=== PATIENT | female | born 1970 | race Caucasian/White ===

== ENCOUNTER 2020-10-29 12:33 | Emergency (ER) | payer OTHER, BC, SELFPAY ==
[2020-10-29] VITALS (14 sets, daily range): BP systolic 98–135; BP diastolic 57–94; PULSE 51–75; RESP 11–25; TEMP 36.9; O2SAT 74–100
--- NOTE | ~2020-10-29 | CT_ITS ---
EXAMINATION: CT BRAIN W/O DATE: 10/29/2020 14:25 INDICATION: Headache TECHNIQUE: Computed tomography (CT) of the head was performed without intravenous contrast. The dose- length product was 605.33 mGy-cm. The mA was adjusted according to patient size. Iterative reconstruc tion technique was employed. COMPARISON: No prior studies for comparison. FINDINGS: Normal brain parenchymal volume for age. Normal alexander-white differentiation. No acute intrac ranial hemorrhage, infarction, mass or mass effect. No ventriculomegaly or midline shift. Midline sagittal images demonstrate a normal corpus callosum, c raniovertebral junction and sella turcica. Basilar cisterns are patent. There is mucosal thickening of the left maxillary sinus. Mastoids are pneumatized. 2: Mild sinus disease. IMPRESSION: 1. No acute intracranial abnormality. Reviewed, dictated and finalized at location A. 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
--- NOTE | 2020-10-29 12:52 | ECG_ITS ---
Measurements Intervals [place] Rate: 62 P: 36 TX: 173 QRS: 44 QRSD: 74 T: 30 QT: 382 QTc: 391 Interpretive Statements SINUS RHYTHM LOW QRS VOLTAGE IN PRECORDIAL LEADS BASELINE ARTIFACT- V4 BORDERLINE ECG Electronically Signed On 10-29-2020 16:28:52 WEBSITE/BLOG EDITOR by Chevy Fleming D.O.
--- NOTE | 2020-10-29 13:10 | PC.NURSE ---
patient brought back to ED room 5 with c/o headache. see initial assessment. patient states she has been seeing her PCP for migraines. states she had a syncopal episode yesterday at home. unclear on details. unclear on injuries. patient also states she was seen in December of last year for same symptoms. she thinks her diagnosis at that time was mini strokes . patient is scheduled to see neurology next month. also states she has a hx of pancreatitis with continued abdomen pain. c/o hematuria. c/o BLE edema with weeping from her legs at times. assessments documented. SL inserted. labs have been sent. EKG done. on imaging engineer.
[2020-10-29 13:14] LABS: Eosinophils Percent Auto 0.8 % (0-4.4); Hemoglobin 14.4 g/dL (12.0-15.0); Immature Granulocyte Absolute 0.01 K/mm3 (0.00-0.031); Immature Granulocyte Percent A 0.3 % (0-0.5); Lymphocytes Absolute Auto 1.35 K/mm3 (0.9-3.2); Lymphocytes Percent Auto 34.2 % (18.3-44.2); Mean Corpuscular HGB Conc 32.7 g/dl (32-36); Mean Corpuscular Hemoglobin 29.7 pg (26-34); Mean Corpuscular Volume 90.7 fl (80-100); Mean Platelet Volume 9.1 fl (7.4-10.4); Monocytes Absolute Auto 0.2 K/mm3 (0.1-0.6); Monocytes Percent Auto 6.1 % (2.6-8.5); Neutrophils Absolute Auto 2.3 K/mm3 (1.3-6.7); Neutrophils Percent Auto 57.6 % (45.5-73.1); Platelet Count Result 306 k/mm3 (150-375); Red Blood Count 4.85 M/mm3 (4.2-5.4); Red Cell Distribution Width 12.1 % (11.5-14.5)
[2020-10-29 13:25] LABS: Anion Gap 6 mmol/L (8-16); Blood Urea Nitrogen 12 mg/dL (7-17); Calcium 9.1 mg/dL (8.4-10.2); Carbon Dioxide 30 mmol/L (22-30); Chloride 105 mmol/L (98-107); Estimated Glomerular Filt Rate > 60; Glucose 84 mg/dL (65-105); Potassium 3.7 mmol/L (3.4-5.0); Sodium 141 mmol/L (137-145)
[2020-10-29] MEDS: METOCLOPRAMIDE HCL INJ 10 MG/2 ML VIAL IV PUSH (13:41)
[2020-10-29] MEDS: FAMOTIDINE 20 MG/2 ML VIAL IV PUSH (13:41)
[2020-10-29] MEDS: KETOROLAC 30 MG/ML VIAL (*BKC) IV PUSH (13:42)
[2020-10-29] MEDS: LACTATED RINGERS 1,000 ML 999 ML IV CONT (13:42)
[2020-10-29] MEDS: LORazepam INJ (*CRX) 2 MG/ML VIAL 1 MG IV PUSH (13:42)
[2020-10-29 13:44] LABS: Alanine Aminotransferase 26 U/L (4-35); Albumin Level 4.4 g/dL (3.5-5.1); Alkaline Phosphatase 58 U/L (38-126); Aspartate Amino Transferase 26 U/L (14-36); Bilirubin,Total 0.4 mg/dL (0.2-1.3); Lipase 80 U/L (23-300)
--- NOTE | 2020-10-29 13:59 | ED.CHESTPAIN ---
HPI - Chest Pain General Chief Complaint: Headache Stated Complaint: headache Time Seen by Provider: 10/29/20 12:51 Source: patient Mode of arrival: ambulatory Limitations: no limitations History of Present Illness HPI narrative: Patient is a 50-year-old female who presents with chief complaint of syncope blood in the urine GI upset and headache. Patient notes that she has a history of traumatic brain injury and has been under the management of her primary care and is currently waiting to get into a neurologist for intractable headaches that she has been experiencing over the last several months. Patient notes yesterday the pain had intensified despite her home medications and she sustained a syncopal episode attributed to pain. Patient also notes she had blood in her urine a day ago which has resolved. Patient notes she has chronic GI upset from chronic pancreatitis. Patient notes she believes she struck her head yesterday with syncope but denies any other injuries or complaints. Patient presents with family per private vehicle in no distress patient does not appear uncomfortable on arrival Related Data Home Medications Medication Instructions Recorded Confirmed alprazolam 0.25 mg tablet 0.25 mg PO DAILY 07/24/20 famotidine 40 mg tablet 40 mg PO DAILY 07/24/20 lubiprostone 8 mcg capsule 8 mcg PO DAILY 07/24/20 sertraline 25 mg tablet 25 mg PO DAILY 07/24/20 sumatriptan succinate mg PO 10/29/20 topiramate 10/29/20 10/29/20 ubrogepant [Ubrelvy] mg 10/29/20 Allergies Allergy/AdvReac Type Severity Reaction Status Date / Time Sulfa (Sulfonamide Allergy Unknown unknown Verified 10/29/20 13:12 Antibiotics) Review of Systems Review of Systems: All systems reviewed & are unremarkable except as noted in HPI and below PMFSH Past Medical History Medical History (Updated 10/29/20 @ 15:09 by Vivek Harper PA-C) Anxiety Depression Vaginal delivery x 2 Surgical History Surgical History History of bilateral tubal ligation History of cholecystectomy History of endometrial ablation History of partial pancreatectomy Family History Family History Mother Hypertension Father Family history of elevated blood lipids Family history of coronary artery disease Grandparent Family history of malignant neoplasm of male breast, Onset Age: 58 Family history of coronary artery disease, Onset Age: 55 Social History Social History Smoking status: Never smoker Second hand tobacco smoke exposure: No Alcohol intake: never Gender identity (if verbalized by the patient): Female Exam Narrative: Exam Narrative: GENERAL: Well-appearing, well-nourished, and in no acute distress. HEAD: Normocephalic, atraumatic. EYES: PERRLA and EOMI. ENT: Nares clear, no rhinorrhea or epistaxis. Mucous membranes moist. Oropharynx without tonsillar hypertrophy exudate or other lesions. NECK: Supple. No adenopathy or masses. CHEST: Clear to auscultation. No respiratory distress. No wheezes rales or rhonchi HEART: Regular rate and rhythm. No murmur heard. Normal peripheral pulses. ABDOMEN: Soft, nontender, nondistended EXTREMITIES: Normal range of motion. No edema. SKIN: Warm, dry, no rash. NEURO: No focal deficits. Alert and oriented x3. Cranial nerves II through XII grossly intact. Normal speech PSYCH: Normal mood and affect. Course Course Emergency Course: Patient evaluated in the emergency department felt appropriate for outpatient reevaluation by specialist patient is afebrile nontoxic-appearing no distress no high risk changes in the blood work or imaging hemodynamically stable vital signs and ABCs intact Vital Signs Vital signs: Vital Signs Temperature 98.4 F 10/29/20 12:44 Pulse Rate 65 10/29/20 12:44 Respiratory Rate 16
--- NOTE | 2020-10-29 14:03 | PC.NURSE ---
patient to restroom via wheelchair. urine specimen collected. orthostatic vitals have been done and documented. patient on ekg monitor tech. will give ativan now that patient back in bed.
[2020-10-29 14:07] LABS: Add Urine Microscopic? NO; Appearance Urine Clear (Clear); Bilirubin Urine Negative (Negative); Blood Urine Negative (Negative); Color Urine Colorless (Yellow); Glucose Urine UA Negative (Negative); Ketones Urine Negative (Negative); Leukocyte Esterase Ur Negative LEU/UL (Negative); Nitrate Urine Negative (Negative); Protein Urine Negative (Negative); Specific Grav Ur 1.008 (1.001-1.035); Urobilinogen Urine Negative mg/dL (<2.0)
--- NOTE | 2020-10-29 14:19 | PC.NURSE ---
Patient taken to CT scan at this time.
== END 2020-10-29 15:33 | disposition home or self-care (01) ==
PROVIDERS: Emergency Medicine Emergency Medical Services; Emergency Provider Emergency Medicine; PCP Internal Medicine
DX: R51.9 Headache, unspecified (principal); F32.9 Major depressive disorder, single episode, unspecified; F41.9 Anxiety disorder, unspecified; R94.31 Abnormal electrocardiogram [ECG] [EKG]
CPT/HCPCS: 36415; 70450; 80048; 80076; 81003; 81025; 83690; 85025; 93005; 96361; 96374; 96375; 99284; J1885; J2060; J2765; J7120

== ENCOUNTER 2022-05-11 08:35 | Emergency (ER) | payer OTHER, BC, SELFPAY ==
--- NOTE | ~2022-05-11 | XR_ITS ---
[XR_[id number]_CR ] INDICATION: Left rib pain after fall TECHNIQUE: Frontal projection of the upper left ribs, frontal projection of the lower left ribs, obli que projection of all the left ribs, frontal inspiratory chest x-ray for interpretation. FINDINGS: There are acute nondisplaced left fourth and fifth rib fracture. No pneumothorax. Heart siz e normal. There is scoliosis. There are cholecystectomy clips. There are no soft tissue abnormality s een. The lungs are clear. IMPRESSION: 1: Acute nondisplaced left fourth and fifth rib fractures. Reviewed, dictated and finalized at location A.
[2022-05-11 08:53] VITALS: BP 125/78; PULSE 91; RESP 18; TEMP 37.3; O2SAT 100
--- NOTE | 2022-05-11 09:37 | ED.GENADULT ---
HPI - General Adult General Chief complaint: Fall Stated complaint: left rib injury Source: patient Mode of arrival: ambulatory Limitations: no limitations History of Present Illness HPI narrative: Patient presents for evaluation of left-sided rib pain. She indicates she was stepping off a deck at home just prior to arrival when she lost her footing and hit her left chest wall against the deck. She did not hit her head. No LOC. She sprained her right ankle about a week ago while in [place]. She was evaluated in an urgent care there and had an x ray that was negative for fracture. She believes her ankle pain contributed to her fall today. She states her current pain level is 10/10. No SOB or cough. She has not taken any medication for her symptoms. She does not smoke. No additional complaints or concerns. Related Data Home Medications Medication Instructions Recorded Confirmed alprazolam 0.25 mg tablet 0.25 mg PO DAILY 07/24/20 05/11/22 sumatriptan succinate 100 mg tablet 100 mg PO DAILY PRN Migraine 10/29/20 05/11/22 Headache erenumab-aooe 70 mg/mL 70 mg subcut MONTHLY 05/11/22 05/11/22 subcutaneous auto-injector (Aimovig Autoinjector) nortriptyline 25 mg capsule 25 mg PO BID 05/11/22 05/11/22 sertraline 100 mg tablet 100 mg PO DAILY 05/11/22 05/11/22 topiramate 50 mg tablet 50 mg PO BID 05/11/22 05/11/22 Allergies Allergy/AdvReac Type Severity Reaction Status Date / Time Sulfa (Sulfonamide Allergy Unknown unknown Verified 05/11/22 09:27 Antibiotics) Review of Systems Review of Systems: CONSTITUTIONAL: Denies fever, chills, or sweats. EYES: Denies visual changes, redness, or discharge. ENT: Denies rhinorrhea, congestion, sore throat, or otalgia. CARDIOVASCULAR: Reports left sided rib pain. Denies palpitations, or edema. RESPIRATORY: Denies cough or dyspnea. GASTROINTESTINAL: Denies abdominal pain, nausea, vomiting, or diarrhea. GENITOURINARY: Denies dysuria or hematuria. SKIN: Denies rash or itching. MUSCULOSKELETAL: Reports right ankle pain. Denies back pain or myalgia. NEUROLOGIC: Denies headache, numbness, dizziness, or weakness. PSYCHIATRIC: Denies anxiety or depression. PMFSH Past Medical History Medical History Anxiety Depression Rib fractures Vaginal delivery x 2 Surgical History Surgical History History of bilateral tubal ligation History of cholecystectomy History of endometrial ablation History of partial pancreatectomy Family History Family History Mother Hypertension Father Family history of elevated blood lipids Family history of coronary artery disease Grandparent Family history of malignant neoplasm of male breast, Onset Age: 58 Family history of coronary artery disease, Onset Age: 55 Social History Social History Smoking status: Never smoker Second hand tobacco smoke exposure: No Alcohol intake: never Substance use: never Living arrangements: with family Gender identity (if verbalized by the patient): Female Sexual Orientation (if Verbalized by the Patient): Straight or Heterosexual Spiritual care concerns: No Exam Narrative: GENERAL: Well-appearing, well-nourished, and in no acute distress however she does echibit facial grimacing throughout my interview and exam. HEAD: Normocephalic, atraumatic. EYES: PERRLA and EOMI. ENT: Nares clear, no rhinorrhea or epistaxis. Mucous membranes moist. Oropharynx without tonsillar hypertrophy exudate or other lesions. Bilateral TMs pearly alexander nonbulging NECK: Supple. No adenopathy or masses. No carotid bruits or JVD CHEST: Clear to auscultation. Left lateral chest wall is tender to palpation. No crepitus. No respiratory distress. No wheezes rales o
[2022-05-11] MEDS: KETOROLAC (*BKC) 60 MG/2 ML VIAL IM (09:43)
== END 2022-05-11 09:58 | disposition home or self-care (01) ==
PROVIDERS: Emergency Provider Nurse Practitioner
DX: S22.42XA Multiple fractures of ribs, left side, initial encounter for closed fracture (principal); W17.89XA Other fall from one level to another, initial encounter; F41.9 Anxiety disorder, unspecified; F32.A Depression, unspecified
CPT/HCPCS: 71101; 96372; 99213; G0463; J1885

== ENCOUNTER 2022-10-24 16:24 | Outpatient (CLI) | payer OTHER, BC, SELFPAY ==
--- NOTE | ~2022-10-24 | MM_ITS ---
EXAMINATION: MM screening jerald BI w yung HISTORY: Screening mammogram TECHNIQUE: Craniocaudal and mediolateral oblique 3-D tomosynthesis images were obtained and synthetic 2-D images were generated. CAD analysis was submitted and interpreted. COMPARISON: 03/2019 bilateral screening mammogram BREAST PARENCHYMAL COMPOSITION: There are scattered areas of fibroglandular density. FINDINGS: There is no evidence of suspicious mass, calcification, or architectural distortion to sugg est malignancy in either breast. There has been no suspicious interval change. IMPRESSION: 1. No mammographic evidence of malignancy. 2. Recommend routine screening mammography in one year. BI-RADS Category 1: Negative Reviewed, dictated and finalized at location B. 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
== END 2022-10-24 16:25 | disposition home or self-care (01) ==
PROVIDERS: Visit Provider Obstetrics & Gynecology
DX: Z12.31 Encounter for screening mammogram for malignant neoplasm of breast (principal)
CPT/HCPCS: 77063; 77067

== ENCOUNTER → 2023-02-12 14:48 | Outpatient (CLI) | payer OTHER, BC, SELFPAY ==
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
== END ==
PROVIDERS: PCP Nurse Practitioner Adult Health; Visit Provider Nurse Practitioner Adult Health
DX: R42 Dizziness and giddiness (principal); R51.9 Headache, unspecified
CPT/HCPCS: 70553; A9577

== ENCOUNTER 2023-10-22 08:03 | Emergency (ER) | payer BC, SELFPAY ==
--- NOTE | 2023-10-22 08:10 | ED.EAR ---
HPI - Ear Problem General Chief complaint: Ear Stated complaint: Ear Pain/Chest Congestion Source: patient, RN notes reviewed and old records reviewed Mode of arrival: ambulatory Limitations: no limitations History of Present Illness HPI Narrative: 53-year-old female presents to [facility] with complaint of cough, congestion this started 10/13/2023. Patient taking [id number] medications. Patient states now also has right ear pain. Patient denies weakness, dizziness, chest pain, shortness of breath. MD Complaint: ear pain Location: right ear Duration: constant Severity: moderate Relieving factors: nothing Exacerbating factors: nothing Related Data Home Medications Medication Instructions Recorded Confirmed alprazolam 0.25 mg tablet 0.25 mg PO DAILY 07/24/20 05/11/22 sumatriptan succinate 100 mg tablet 100 mg PO DAILY PRN Migraine 10/29/20 05/11/22 Headache erenumab-aooe 70 mg/mL 70 mg subcut MONTHLY 05/11/22 05/11/22 subcutaneous auto-injector (Aimovig Autoinjector) nortriptyline 25 mg capsule 25 mg PO BID 05/11/22 05/11/22 sertraline 100 mg tablet 100 mg PO DAILY 05/11/22 05/11/22 topiramate 50 mg tablet 50 mg PO BID 05/11/22 05/11/22 atorvastatin 40 mg tablet mg 10/22/23 Allergies Allergy/AdvReac Type Severity Reaction Status Date / Time Sulfa (Sulfonamide Allergy Unknown unknown Verified 10/22/23 08:13 Antibiotics) Review of Systems Constitutional: Constitutional: Reports no additional constitutional complaints, Reports body ache(s), Denies chills, Denies fatigue, Denies fever(s) and Denies headache(s) Eyes: Eyes: Reports no additional eye complaints and Denies blurry vision ENT: Reports system reviewed and no additional complaints, except as documented, Denies vertigo, Denies dizziness, Denies ear discharge, Reports otalgia, Denies facial pain, Denies headache(s), Reports nasal congestion, Denies nasal discharge, Reports sinus pain, Reports sinus pressure and Denies sore throat Cardiovascular: Cardiovascular: Reports no additional cardiovascular complaints, Denies chest pain, Denies chest pain at rest, Denies rapid heart rate and Denies dyspnea Respiratory: Respiratory: Reports no additional respiratory complaints, Reports chest congestion, Reports cough, Denies pain on inspiration, Denies pain with cough and Denies dyspnea Gastrointestinal: Gastrointestinal: Denies abdominal pain, Denies diarrhea, Denies nausea and Denies vomiting Integumentary/Breasts: Skin/Breast: Denies rash Neurologic: Reports system reviewed and no additional complaints, except as documented, Denies vertigo, Denies dizziness and Denies headache(s) Endocrine: Endocrine: Denies fatigue PMFSH Past Medical History Medical History Anxiety Depression Rib fractures Vaginal delivery x 2 Surgical History Surgical History History of bilateral tubal ligation History of cholecystectomy History of endometrial ablation History of partial pancreatectomy Family History Family History Mother Hypertension Father Family history of elevated blood lipids Family history of coronary artery disease Grandparent Family history of malignant neoplasm of male breast, Onset Age: 58 Family history of coronary artery disease, Onset Age: 55 Social History Social History Smoking status: Never smoker Second hand tobacco smoke exposure: No Alcohol intake: never Substance use: never Living arrangements: with family Gender identity (if verbalized by the patient): Female Sexual Orientation (if Verbalized by the Patient): Straight or Heterosexual Spiritual care concerns: No Comments At the time of my signature, I reviewed and agree with the nursing past medical, surgical, social,
[2023-10-22 08:12] VITALS: TEMP 36.6
[2023-10-22 08:19] VITALS: BP 114/68; PULSE 100; RESP 16; TEMP 36.6; O2SAT 99
== END 2023-10-22 08:28 | disposition home or self-care (01) ==
PROVIDERS: Emergency Provider Registered Nurse
DX: J06.9 Acute upper respiratory infection, unspecified (principal); H66.001 Acute suppurative otitis media without spontaneous rupture of ear drum, right ear; F41.9 Anxiety disorder, unspecified; F32.A Depression, unspecified
CPT/HCPCS: 99213; G0463

== ENCOUNTER 2023-11-08 08:29 | Emergency (ER) | payer BC, SELFPAY ==
[2023-11-08 08:37] VITALS: BP 114/71; PULSE 96; RESP 16; TEMP 36.6; O2SAT 100
--- NOTE | 2023-11-08 09:10 | ED.GENADULT ---
HPI - General Adult General Chief complaint: Urogenital-Female Stated complaint: Urinary Problem Source: patient Mode of arrival: ambulatory Limitations: no limitations History of Present Illness HPI narrative: Patient presents for evaluation of urinary symptoms for the last 3 days. Symptoms include urinary frequency, urgency, hesitancy, incomplete emptying, dysuria and mild low back pain. Denies any fever, chills, nausea, vomiting, abdominal pain, vaginal bleeding or discharge. She was recently treated for an ear infection. She indicates that every time she receives antibiotic she develops a urinary tract infection thereafter. She still has right sided ear pain and muffled hearing. She has an appt with her PCP on Friday to address her ear pain. Related Data Home Medications Medication Instructions Recorded Confirmed alprazolam 0.25 mg tablet 0.25 mg PO DAILY 07/24/20 05/11/22 sumatriptan succinate 100 mg tablet 100 mg PO DAILY PRN Migraine 10/29/20 05/11/22 Headache erenumab-aooe 70 mg/mL 70 mg subcut MONTHLY 05/11/22 05/11/22 subcutaneous auto-injector (Aimovig Autoinjector) nortriptyline 25 mg capsule 25 mg PO BID 05/11/22 05/11/22 sertraline 100 mg tablet 100 mg PO DAILY 05/11/22 05/11/22 topiramate 50 mg tablet 50 mg PO BID 05/11/22 05/11/22 atorvastatin 40 mg tablet mg 10/22/23 Allergies Allergy/AdvReac Type Severity Reaction Status Date / Time Sulfa (Sulfonamide Allergy Unknown unknown Verified 11/08/23 08:56 Antibiotics) Review of Systems Review of Systems: CONSTITUTIONAL: Denies fever, chills, or sweats. EYES: Denies visual changes, redness, or discharge. ENT: Reports right-sided ear pain and muffled hearing. Denies rhinorrhea, congestion, or sore throat CARDIOVASCULAR: Denies chest pain, palpitations, or edema. RESPIRATORY: Denies cough or dyspnea. GASTROINTESTINAL: Denies abdominal pain, nausea, vomiting, or diarrhea. GENITOURINARY: Reports urinary frequency, hesitancy, incomplete emptying, dysuria. Denies vaginal bleeding/discharge SKIN: Denies rash and skin lesions MUSCULOSKELETAL: Reports low back pain. Denies joint pain, or myalgia. NEUROLOGIC: Denies headache, numbness, dizziness, or weakness. PSYCHIATRIC: Denies anxiety or depression. PMFSH Past Medical History Medical History Anxiety Depression Rib fractures Vaginal delivery x 2 Surgical History Surgical History History of bilateral tubal ligation History of cholecystectomy History of endometrial ablation History of partial pancreatectomy Family History Family History Mother Hypertension Father Family history of elevated blood lipids Family history of coronary artery disease Grandparent Family history of malignant neoplasm of male breast, Onset Age: 58 Family history of coronary artery disease, Onset Age: 55 Social History Social History Smoking status: Never smoker Second hand tobacco smoke exposure: No Alcohol intake: never Substance use: never Living arrangements: with family Gender identity (if verbalized by the patient): Female Sexual Orientation (if Verbalized by the Patient): Straight or Heterosexual Spiritual care concerns: No Exam Narrative: GENERAL: Well-appearing, well-nourished, and in no acute distress. HEAD: Normocephalic, atraumatic. EYES: PERRLA and EOMI. ENT: Nares clear, no rhinorrhea or epistaxis. Mucous membranes moist. Oropharynx without tonsillar hypertrophy exudate or other lesions. There is erythema in the right ear canal with mild right tympanic membrane erythema. No bulging present NECK: Supple. No adenopathy or masses. No carotid bruits or JVD CHEST: Clear to auscultation. No respiratory distress. No w
== END 2023-11-08 09:05 | disposition home or self-care (01) ==
PROVIDERS: Emergency Provider Nurse Practitioner; PCP Family Medicine
DX: N39.0 Urinary tract infection, site not specified (principal); B96.20 Unspecified Escherichia coli [E. coli] as the cause of diseases classified elsewhere; H60.501 Unspecified acute noninfective otitis externa, right ear; F41.9 Anxiety disorder, unspecified; F32.A Depression, unspecified
CPT/HCPCS: 81003; 87077; 87086; 87186; 99213; G0463

== ENCOUNTER 2024-02-21 08:13 | Emergency (ER) | payer BC, SELFPAY ==
[2024-02-21 08:24] VITALS: BP 117/76; PULSE 104; RESP 16; TEMP 36.6; O2SAT 98
--- NOTE | 2024-02-21 08:36 | ED.DENTAL ---
HPI - Dental/Oral General Chief complaint: Dental/Oral Stated complaint: tooth pain Time Seen by Provider: 02/21/24 08:36 Source: patient, RN notes reviewed and old records reviewed Mode of arrival: ambulatory Limitations: no limitations History of Present Illness HPI Narrative: 53-year-old female who presents to [facility] with complaints of dental pain to #19 tooth which started some on with increased symptoms since yesterday. Patient reports that her tooth is sensitive and painful and she has some mild facial swelling. Patient has gargled with salt water and has taken Ibuprofen without resolution. Patient reports that she does have a dentist and will call on Friday morning. No obvious redness of gum around tooth or obvious caries, Complaint: tooth pain Location: Tooth # (19) Onset (ago): day(s) (2) Treatment prior to arrival: oral analgesic and other (salt water gargles) Related Data Home Medications Medication Instructions Recorded Confirmed alprazolam 0.25 mg tablet 0.25 mg PO DAILY 07/24/20 11/08/23 sumatriptan succinate 100 mg tablet 100 mg PO DAILY PRN Migraine 10/29/20 11/08/23 Headache nortriptyline 25 mg capsule 25 mg PO BID 05/11/22 11/08/23 sertraline 100 mg tablet 100 mg PO DAILY 05/11/22 11/08/23 topiramate 50 mg tablet 50 mg PO BID 05/11/22 11/08/23 atorvastatin 40 mg tablet 40 mg PO DAILY 10/22/23 11/08/23 cyanocobalamin (vitamin B-12) 100 mcg 11/08/23 mcg/mL injection syringe famotidine 20 mg tablet 20 mg PO BID 11/08/23 11/08/23 fluticasone propionate 50 2 spray intranasal HS 11/08/23 11/08/23 mcg/actuation nasal spray,suspension Allergies Allergy/AdvReac Type Severity Reaction Status Date / Time Sulfa (Sulfonamide Allergy Unknown unknown Verified 11/08/23 08:56 Antibiotics) Review of Systems Review of Systems: CONSTITUTIONAL: Denies fever, chills, or sweats. ENT: Denies rhinorrhea, congestion, sore throat, or otalgia. Reports dental pain to #19 tooth CARDIOVASCULAR: Denies chest pain, palpitations, or edema. RESPIRATORY: Denies cough or dyspnea. SKIN: Denies rash or itching. MUSCULOSKELETAL: Denies myalgia. NEUROLOGIC: Denies headache All systems reviewed & are unremarkable except as noted in HPI and below PMFSH Past Medical History Medical History Anxiety Depression Rib fractures Vaginal delivery x 2 Surgical History Surgical History History of bilateral tubal ligation History of cholecystectomy History of endometrial ablation History of partial pancreatectomy Family History Family History Mother Hypertension Father Family history of elevated blood lipids Family history of coronary artery disease Grandparent Family history of malignant neoplasm of male breast, Onset Age: 58 Family history of coronary artery disease, Onset Age: 55 Social History Social History Smoking status: Never smoker Second hand tobacco smoke exposure: No Alcohol intake: never Substance use: never Living arrangements: with family Gender identity (if verbalized by the patient): Female Sexual Orientation (if Verbalized by the Patient): Straight or Heterosexual Spiritual care concerns: No Comments At time of signature, agree with nursing past medical, surgical, social and family history. There is no relevant family history pertinent to the presenting complaint Exam Narrative: GENERAL: Well-appearing, well-nourished, and in no acute distress. HEAD: Normocephalic, atraumatic. EYES: PERRLA and EOMI. ENT: Nares clear, no rhinorrhea or epistaxis. Mucous membranes moist. No swelling or redness of gum around tooth no obvious caries noted, reports pain to the #19 tooth with minimal swelling noted to face, no trismus or C[place]ar Ang
== END 2024-02-21 08:56 | disposition home or self-care (01) ==
PROVIDERS: Emergency Provider Registered Nurse
DX: K08.89 Other specified disorders of teeth and supporting structures (principal); F41.9 Anxiety disorder, unspecified; F32.A Depression, unspecified
CPT/HCPCS: 99213; G0463

== ENCOUNTER 2025-03-07 08:20 | Observation (INO) | payer BC, SELFPAY ==
--- NOTE | ~2025-03-07 | CT_ITS ---
EXAMINATION: CT abdomen pelvis wo con DATE: 03/07/2025 09:44 INDICATION: Left flank pain. Nephrolithiasis. TECHNIQUE: Computed tomography (CT) of the abdomen and pelvis was performed without intravenous contr ast. Automated exposure control and iterative reconstruction technique were employed. The dose-length product was 176.96 mGy-cm. COMPARISON: None FINDINGS: Lung bases are clear. Heart size is normal. Very small pericardial effusion. No pleural effusion. Cho lecystectomy clips the gallbladder fossa. Liver, spleen, pancreas, bilateral adrenal glands are ansley l. A few <2 mm stones in the bilateral kidneys are slightly larger 2-3 mm stone at the proximal left ureter resulting in mild left hydronephrosis. Bladder, uterus and bilateral adnexa are unremarkable. Short loop of nonobstructed small bowel extends into a small widemouthed umbilical hernia. There is a dditional small fat-containing supraumbilical ventral hernia. Bowels including the appendix are other moya normal. No free intraperitoneal gas or fluid. No pathologically enlarged abdominal or pelvic lym phadenopathy. Mild lumbar levocurvature with mild spondylosis. IMPRESSION: 1. Bilateral nephrolithiasis with 2-3 mm stone at the proximal left ureter with mild left hydronephro sis. 2. Small loop of nonobstructed small bowel extends into a small widemouthed umbilical hernia. Additio nal small fat-containing supraumbilical ventral hernia. 3. Very small pericardial effusion. Reviewed, dictated and finalized at location A. IMPRESSION: 1. Bilateral nephrolithiasis with 2-3 mm stone at the proximal left ureter with mild left hydronephrosis. 2. Small loop of nonobstructed small bowel extends into a small widemouthed umb ilical hernia. Additional small fat-containing supraumbilical ventral hernia. 3. Very small pericardial effusion.
--- NOTE | ~2025-03-07 | XR_ITS ---
XR abdomen/kub 1V Ordering provider: Anna Toth PA-C History: . ureterolithiasis . Comparison: None. FINDINGS: BOWEL: Nonobstructive bowel gas pattern. ORGANOMEGALY: None. SIGNIFICANT PATHOLOGIC CALCIFICATIONS: None. OTHER: No free air is seen under the diaphragm. IMPRESSION: NO ACUTE ABDOMINAL FINDINGS. Reviewed, dictated and finalized at location A.
--- NOTE | ~2025-03-07 | XR_ITS ---
EXAMINATION: XR retrograde pyelo w/stent LT DATE: 03/08/2025 16:00 CDT INDICATION: CYSTO LEFT SPECIAL . TECHNIQUE: 7 fluoroscopic images of the left abdomen and pelvis were obtained during left retrograde pyelography with stent placement, performed by Dr. Wilson. I was not present during the procedure. Fluoroscopy exposure time was 26.2 seconds. Air Kerma 5.24 mGy. DAP 0.03149 mGym2. COMPARISON: CT abdomen pelvis 03/07/2025 FINDINGS/IMPRESSION: Fluoroscopic documentation of left retrograde pyelography with stent placement. Please refer to the o perative note for complete procedural details . Reviewed, dictated and finalized at location K.
--- OUTSIDE RECORDS SUMMARY | 2025-03-07 08:23 | XMS_ITS | Encounter Summary ---
Author Organization [facility] Healthcare Address [address] [place] [address] Care Team Providers Care Traffic Sign Erection Supervisor Name Role Phone Amrik Jeffrey MD Primary Care Provider Stephanie Burr MD Unavailable [phone] Bernadine Rojas MA Unavailable Damaris Fox MD Primary Care Provide r Encounter Details Date Type Department Care Team (Late st Contact Info) Description 09/16/2018 Orders Only [facility] Radiology [address] [place] [address] Makenna Hoang MD [address] [facility] [address] [place] [address] Social History Tobacco Use Types Packs/Day Years Used Date Smoking Tobacco: Never Smokeless Tobacco: Never Alcohol Use Standard Drinks/Week Comments Yes 0 (1 standard drink = 0.6 oz pur e alcohol) Comments No Sex and Gender Information Value Date Recorded Sex Assigned at Not on file 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 Gender Identity Not on file Sexual Orientation Not on file documented as of this encounter Plan of Treatment Not on file documented as of this encounter Visit Diagnoses Not on filedocumented in this encounter Additional Health Concerns Infection Onset Date Last Indicated Resolved Time COVID: Suspected 07/31/2021 07/31/2021 08/01/2021 7:00 AM CDT COVID: Suspected 09/25/2021 09/25/2021 09/25/2021 1:51 AM ASSOCIATE PROFESSOR COMPUTER SCIENCE COVID: Suspected 01/19/2025 01/19/2025 01/19/2025 10:15 AM CDT COVID19 01/19/2025 01/19/2025 01/29/2025 3:05 AM CDT COVID: Recovered Comment:Added based on recent COVID infection. 01/29/2025 02/09/2025 documented as of this encounter Care Teams Traffic Sign Erection Supervisor Relationship Specialty Start Date End Date Amrik Jeffrey MD PCP - General 07/27/13 03/19/22 Damaris Fox MD [address] [facility] [address] [facility] [address] [place] [id number] PCP - General Family Medicine 03/20/22 Stephanie Burr MD Consulting Physician Gastroenterology 02/24/18 Bernadine Rojas MA [address] [place] [address] [address] [facility] [address] [place] [address] ACO Care Leadership Intern 09/26/21 10/07/21 documented as of this encounter
--- OUTSIDE RECORDS SUMMARY | 2025-03-07 08:23 | XMS_ITS | Encounter Summary ---
Author Organization [facility] Healthcare Address [address] [place] [address] Care Team Providers Care Workers Compensation Claims Adjuster Name Role Phone Stephanie Burr MD Unavailable [phone] Damaris Fox MD Primary Care Provide r Encounter Details Date Type Department Care Team (Late st Contact Info) Description 02/09/2025 Results Follow-Up [facility] Medical Group Primary Care at [address] [place] [address] Damaris Fox MD [address] [place] [address] [address] [place] [address] SCREENING MAMMOGRAM BILATERAL W DREW Social History Tobacco Use Types Packs/Day Years Used Date Smoking Tobacco: Never Smokeless Tobacco: Never Alcohol Use Standard Drinks/Week Comments Yes 0 (1 standard drink = 0.6 oz pur e alcohol) occas AUDIT-C Answer Date Recorded Q1: How often do you have a drink containing alc ohol? Monthly or less 11/23/2024 Q2: How many drinks containi ng alcohol do you have on a typical day when you are drinking? 1 or 2 11/23/2024 Q3: How often do you have si x or more drinks on one occasion? 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 Let patient know her mammogram is benign. Repeat in 1 year documented in this encounter Plan of Treatment Not on file documented as of this encounter Visit Diagnoses Not on filedocumented in this encounter Additional Health Concerns Infection Onset Date Last Indicated Resolved Time COVID: Recovered Comment:Added based on recent COVID infection. 01/29/2025 02/09/2025 documented as of this encounter Care Teams Workers Compensation Claims Adjuster Relationship Specialty Start Date End Date Damaris Fox MD [address] [place] [address] [address] [facility] [address] [place] [id number] PCP - General Family Medicine 03/20/22 Stephanie Burr MD Consulting Physician Gastroenterology 02/24/18 documented as of this encounter
--- OUTSIDE RECORDS SUMMARY | 2025-03-07 08:23 | XMS_ITS | Referral Summary ---
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 11/23/2024 FINDINGS: There is a small focus of susceptibility artifact along the anterior and medial knee. Joint and Bursae: There is only trivial fluid of the knee joint. Trace Hancock's cyst with no leak. Bones: No acute fracture or suspicious marrow infiltration. No avascularnecrosis. Cartilage: Patellofemoral: There is moderate chondrosis of the medianridge of the mid patella with chondral fissuring. Areas of mild to moderate chondrosis of the lateral facet. Medial compartment: Mild chondrosis central weight bearingmedial femoral condyle. Lateral Compartment: No significant chondrosis. Ligaments: The ACL, PCL, MCL and lateral collateral ligament complex are intact. Extensor Mechanism: The quadriceps and patellar tendons are intact. Tendons/Soft tissues: The popliteus tendon is intact. The musculature is intact without evidence of tear. The popliteal neurovascular bundle isnormal. Medial Meniscus: The medial meniscus is intact. Lateral Meniscus: The lateral meniscus is intact. 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 Areas of mild to moderate chondrosis of the lateralfacet. Mild chondrosis central weight bearing medial femoral condyle. ACL, PCL and menisci are intact. Trace Hancock's cyst with no leak. THIS IS AN ELECTRONICALLY VERIFIED FINAL REPORT 12/27/2024 8:27 AM - Electronically signed by Mario Alberto Arnold M.D. MJ: TREVIN Report ID: [id number] Reading Location: [place] [address] [place] Jasmyn VOSS IMG MRI PROCEDURES Teresa l Result * Hepatitis C antibody (07/18/2022 2:20 PM CDT) Hep C Ab Nonreactive Nonreactive [facility] ([place]) Comment: Interpretive Data Nonreactive: Antibodies to HCV not detected. Does NOT exclude the possibility of recent exposure to HCV. Equivocal: Equivocal for HCV antibodies. Supplemental molecular testing will be automatically performed to determine infection status in accordance with current CDC screening recommendations. Reactive: Positive for HCV antibodies. This may represent current or past HCV infection. Supplemental molecular testing will be automatically performed to determine current infection status in accordance with current CDC screening recommendations. Interpretive data was last revised on 2020. Testing performed by: [facility], [address] [place] [address]., [id number] Blood 07/18/2022 2:20 PM CDT 07/18/2022 7:37 PM CDT Narrative [facility] ([place]) - 07/18/2022 8:52 PM CDT Fasting- [facility] LAB MICROBIOL OGY - GENERAL ORDERABLES Edited Result - Final [facility]AT ([place]) 1 [facility] Department of Laboratories [place], [place] [id number] * COLONOSCOPY (12/01/2020 10:00 AM ANIMAL CARE GIVER) Anatomical Region Laterality Modality Other Narrative Procedure Note Mikey Lentz MD - 12/01/2020 10:00 AM CST [facility] Patient Name: Pasha Saini Procedure Date: 12/01/2020 10:00 AM Date of : 1970 Admit Type: Outpatient Age: 50 Gender: Female Attending MD: Mikey Lentz M.D. Room: [facility] ENDOSCOPY ROOM 3 Note Status: Finalized Procedure: Colonoscopy Indications: Surveillance: Personal history of colonic polypswith unknown histology on last colonoscopy (inadequate bowel preparation) less than 3 years ago, Last colonoscopy: May 2020 Referring MD: Amrik Jeffrey M.D. Providers: Mikey Lentz M.D. Medicines: Monitored Anesthesia Care Complications: No immediate complications. Estimated Blood Loss: Estimated blood loss was minimal. Procedure: Pre-Anesthesia Assessment: - Prior to the procedure, a History and Physicalwas performed, and patient medications, allergies and sensitivities were reviewed. The patient'stolerance of previous anesthesia was reviewed. - Immediately prior to administration ofmedications, the patient was re-assessed for adequacy to receive sedatives. - The risks and benefits of the procedure and the sedation options and risks were discussed with the patient. All questions were answered and informed consent was obtained. The benefits, risks and alternatives of theprocedure and sedation were discussed and informed consentwas obtained. All questions were answered. Please referto the signed informed consent document in the medical record. The scope was passed under direct vision.The [id number] endoscope was introduced through the anus and advanced to the terminal ileum. The colonoscopy was performed without difficulty. The quality of the bowel preparation was evaluatedusing the BBPS (Moffat Bowel Preparation Scale) withscores of: Right Colon = 2 (minor amount of residual staining, small fragments of stool and/or opaque liquid, but mucosa seen well), Transverse Colon = 3 (entire mucosa seen well with no residual staining, small fragments of stool or opaque liquid) and Left Colon = 2 (minor amount of residual staining, small fragments of stool and/or opaque liquid, but mucosa seen well). The total BBPS score equals 7. Thequality of the bowel preparation was good. The bowel preparation used was GoLYTELY via split dose instruction. The quality of the bowel preparationwas good. Findings: The perianal and digital rectal examinations were normal. The terminal ileum appeared normal. A 3 mm polyp was found in the cecum. The polyp was sessile. The polyp was removed with a jumbo cold forceps. Resection and retrieval were complete. A 7 mm polyp was found in the ascending colon. The polyp was sessile. The polyp was removed with a cold snare. Resection and retrieval were complete. Many small-mouthed diverticula were found in the sigmoid colon. The retroflexed view of the distal rectum and anal verge was normaland showed no anal or rectal abnormalities. Impression: - The examined portion of the ileum was normal. - One 3 mm polyp in the cecum, removed with a jumbo cold forceps. Resected and retrieved. - One 7 mm polyp in the ascending colon, removedwith a cold snare. Resected and retrieved. - Diverticulosis in the sigmoid colon. - The distal rectum and anal verge are normal on retroflexion view. Recommendation: - Await pathology results. - Repeat colonoscopy in 5 years for surveillance. Electronically signed by Mikey Lentz MD Mikey Lentz M.D. 12/01/2020 10:32:31 AM . Number of Addenda: 0 Note Initiated On: 12/01/2020 10:00 AM Recognized by the [employer] for promoting quality in endoscopy Mikey Lentz MD ENDOSCOPY PROCEDURES Final Resu lt from Last 3 Months or Most Recently Relevant to Health Maintenance Additional Health Concerns Infection Onset Date Last Indicated COVID: Recovered Comment:Added based on recent COVID infection. 01/29/2025 025 Insurance ANTHEM ACCESS CHOICE [employer] PPO [employer] ANTHEM ACCESS CHOICE [employer] ANTHEM ACCESS [facility] ACCESS [facility] Advance Directives For more information, please contact: [phone] * Full Code (Latest Code Status on File) Date Activated Date Inactivated Comments 12/01/2020 9:29 AM 12/01/2020 3:20 PM * Full Code Date Activated Date Inactivated Comments 06/05/2020 8:36 AM 06/05/2020 3:06 PM * Full Code Date Activated Date Inactivated Comments 03/30/2019 9:01 AM 03/30/2019 2:47 PM * Full Code Date Activated Date Inactivated Comments 09/30/2018 10:26 AM 09/30/2018 2:11 PM * Full Code Date Activated Date Inactivated Comments 09/30/2018 10:21 AM 09/30/2018 10:26 AM Care Teams [employer] Relationship Specialty Start Date End Date Damaris Fox MD [address] [place] [address] [place] [address] PCP - General Family Medicine 03/20/22 Stephanie Burr MD Consulting Physician Gastroenterology 02/24/18
--- OUTSIDE RECORDS SUMMARY | 2025-03-07 08:23 | XMS_ITS | CONTINUITY OF CARE DOCUMENT ---
Author Name lacy house Address Unknown Organization [facility] Address [address] [place] [address] Phone [phone] Care Team Providers Care Supervisor Personnel Clerks Name Role Phone Wyatt Castle MD Unavailable JANINA MADRID Unavailable JANINA MADRID Unavailable [phone] PROBLEMS Condition Status Date Provider Notes Other symptoms involving cardiovascular system completed - Wyatt Castle MD Other symptoms involving cardiovascular system completed - Wyatt Castle MD SVT active Wyatt Castle MD Presence of implantable loop recorder active Wyatt Castle MD Palpitations active Wyatt Castle MD Chest pain-type to be determined active Wyatt Castle MD Syncope active Wyatt Castle MD Shortness of breath active Wyatt simon MD Fatigue active Wyatt Castle MD Obesity active Wyatt Castle MD Snoring - JOAQUÍN? active Wyatt Castle MD Hyperlipidemia active Murali Milian Family hx of heart disease active Murali Knox dzspenser Dizziness active Murali Milian ENCOUNTERS Date Type Provider Location Encounter Diag nosis - In-person encounter Office Visit Wyatt Castle MD [facility] Office - In-person encounter Office Visit Wyatt Castle MD [facility] Office - In-person encounter Office Visit Wyatt Castle MD [facility] Office - In-person encounter Office Visit Wyatt Castle MD [facility] Office HyperlipidemiaFamily hx of heart diseaseDizziness - In-person encounter Office Visit Wyatt Castle MD [facility] Office - In-person encounter Office Visit Wyatt Castle MD [facility] Office Snoring - JOAQUÍN? - In-person encounter Office Visit Wyatt Castle MD [facility] Office - In-person encounter Office Visit Wyatt Castle MD [facility] Office SVTPresence of implantable loop recorderChest pain-type to be determinedSyncopeShortness of breathFatigueObesity - In-person encounter Office Visit Wyatt Castle MD [facility] Office - In-person encounter Office Visit Wyatt Castle MD [facility] Other symptoms involving cardiovascular systemOther symptoms involving cardiovascular systemPresence of implantable loop recorderPalpitations - In-person encounter Office Visit Wyatt Castle MD [facility] Office SVT VITAL SIGNS Date Observation Value Provider Body Mass Index (Ratio) 30.70 kg/m2 Hitesh Castle MD blood pressure, cuff size regular Ke rri Jackie blood pressure, diastolic 80 mm[Hg] Ke rri Jackie blood pressure, systolic 130 mm[Hg] Beata Mejia oxygen saturation, oximetry 100 % Chelsy Mejia respiratory rate E&M 12 /min Chelsy huynh pulse rate 90 /min Chelsy Orquideae lder weight E&M 152 [lb_av] Chelsy Chelynenfe lder height E&M 59 [in_i] Chelsy Gruenenfe lder height E&M 59 [in_i] Chelsy Chelynenfe er Body Mass Index (Ratio) 34.33 kg/m2 Hitesh Castle MD blood pressure, cuff size regular Ke rri Maxuenedanieleld blood pressure, diastolic 80 mm[Hg] Ke rri Maxuenenfelder blood pressure, systolic 112 mm[Hg] Betaa ri Orquideaelder oxygen saturation, oximetry 99 % [facility] rate E&M 12 /min Chelsy Burrows amina pulse rate 91 /min Chelsy Orquideae er weight E&M 170 [lb_av] Chelsy Hearde er height E&M 59 [in_i] Chelsy Marivelnfe er weight E&M 172 [lb_av] Jana burrows Body Mass Index (Ratio) 34.82 kg/m2 Murali Milian blood pressure, diastolic 77 mm[Hg] St maira Carrero blood pressure, systolic 106 mm[Hg] Te Carrero oxygen saturation, oximetry 99 % Yolanda Carrero pulse rate 88 /min Yolanda Carrero respiratory rate E&M 18 /min Yolanda quigley weight E&M 172.4 [lb_av] Yolanda Carrero height E&M 59 [in_i] Yolanda Carrero Body Mass Index (Ratio) 28.27 kg/m2 Toro Helm oxygen saturation, oximetry 99 % Chastity Ankur pulse rate 67 /min Chastity Ankur blood pressure, diastolic 80 mm[Hg] Ch astity Ankur blood pressure, systolic 110 mm[Hg] Yissel stity Ankur respiratory rate E&M 18 /min Yisselstit y Ankur weight E&M 140 [lb_av] Chastity Ankur height E&M 59 [in_i] Chastity Ankur Body Mass Index (Ratio) 27.67 kg/m2 Jord en Brodie blood pressure, diastolic 74 mm[Hg] Er ica Manjarrez-Reg blood pressure, systolic 126 mm[Hg] Tierra ca Manjarrez-Reg oxygen saturation, oximetry 98 % Dena Manjarrez-Reg pulse rate 60 /min Dena Manjarrez- Reg weight E&M 137 [lb_av] Dena Manjarrez- Reg height E&M 59 [in_i] Dena Manjarrez- Reg Body Mass Index (Ratio) 28.27 kg/m2 Jord en Brodie blood pressure, diastolic 60 mm[Hg] Er ica Manjarrez-Reg blood pressure, systolic 120 mm[Hg] Tierra ca Manjarrez-Reg oxygen saturation, oximetry 98 % Dena Manjarrez-Reg pulse rate 70 /min Dena Manjarrez- Reg weight E&M 140 [lb_av] Dena Manjarrez- Reg height E&M 59 [in_i] Dena Manjarrez- Reg blood pressure, resting No Hitesh deborah Castle MD blood pressure, diastolic 70 mm[Hg] Me vik Cho blood pressure, systolic 111 mm[Hg] Twyla kinney Marquis pulse rate 101 /min Jennifer Marquis oxygen saturation, oximetry 98 % Jennifer Marquis respiratory rate E&M 18 /min Jennifer Marquis Body Mass Index (Ratio) 31.26 kg/m2 Magali Cho weight E&M 154.8 [lb_av] Jennifer Cho blood pressure, diastolic 77 mm[Hg] Henry Sepulveda blood pressure, systolic 135 mm[Hg] Beatris Sepulveda pulse rate 85 /min Guido rosado oxygen saturation, oximetry 98 % Guido Sepulveda respiratory rate E&M 16 /min Francisco Sepulveda Body Mass Index (Ratio) 32.80 kg/m2 Jasmyn Sepulveda weight E&M 162.4 [lb_av] Guido jamilon blood pressure, diastolic 80 mm[Hg] Piotr Wood blood pressure, systolic 120 mm[Hg] Terrance Darlingby pulse rate 73 /min Kandace Darlingby oxygen saturation, oximetry 98 % Kandace Darlingby respiratory rate E&M 16 /min Kandace Darlingby Body Mass Index (Ratio) 31.99 kg/m2 Gordon Darlingby weight E&M 158.4 [lb_av] Kandace Darlingby height E&M 59 [in_i] Kandace Wood ALLERGIES Allergy Name Onset Date Reaction Criticality Status SULFA High Criticality active RESULTS Date Observation Value Provider Reference Range Interpretation Location 03/01 hemoglobin A1C, blood, as % of total hemoglobin 5.2 % OF TOTAL HGB [facility] <5.7 Normal 03/01 basophils as percent of blood leukocytes 1.3 % [facility] Normal 03/01 eosinophils as percent of blood leukocytes 1.3 % [facility] Normal 03/01 monocyte count, blood 5.8 % [facility] Normal 03/01 lymphocyte count, blood 27.2 % [facility] Normal 03/01 neutrophils as percent of blood leukocytes 64.4 % [facility] Normal 03/01 basophils, absolute, manual 49 cells/mcL [facility] 0-200 Normal 03/01 eosinophils, absolute, manual 49 cells/mcL [facility] 15-500 Normal 03/01 monocytes, absolute, manual 220 cells/mcL [facility] 200-950 Normal 03/01 lymphocytes, absolute 1034 CELLS/UL [facility] 850-3900 Normal 03/01 Absolute Neutrophil count 2447 cells/mcL [facility] 2053-0514 Normal 03/01 mean platelet volume 9.6 fL [facility] 7.5-12.5 Normal 03/01 platelet count 302 THOUSAND/UL [facility] 140-400 Normal 03/01 red blood cell distribution width 12.9 % [facility] 11.0-15.0 Normal 03/01 mean corpuscular hemoglobin concentration, RBC 32.5 G/DL [facility] 32.0-36.0 Normal 03/01 mean corpuscular hemoglobin, RBC 29.7 pg [facility] 27.0-33.0 Normal 03/01 mean corpuscular volume, RBC 91.1 fL [facility] 80.0-100.0 Normal 03/01 hematocrit, blood 42.1 % [facility] 35.0-45.0 Normal 03/01 hemoglobin electrophoresis, blood 13.7 [facility] 11.7-15.5 Normal 03/01 erythrocyte (RBC) count 4.62 MILLION/UL [facility] 3.80-5.10 Normal 03/01 leukocyte (white blood cells) count, blood 3.8 THOUSAND/UL [facility] 3.8-10.8 Normal 03/01 alanine aminotransferase (SGPT), serum 20 1/L [facility] 6-29 Normal 03/01 aspartate aminotransferase (SGOT), serum 19 1/L [facility] 10-35 Normal 03/01 alkaline phosphatase, serum 82 1/L [facility] 37-153 Normal 03/01 bilirubin, serum, total 0.6 mg/dL [facility] 0.2-1.2 Normal 03/01 albumin/globulin ratio, serum 1.7 (calc) [facility] 1.0-2.5 Normal 03/01 globulins, serum, total 2.6 G/DL (CALC) [facility] 1.9-3.7 Normal 03/01 albumin, serum 4.5 g/dL [facility] 3.6-5.1 Normal 03/01 protein, total, serum 7.1 g/dL [facility] 6.1-8.1 Normal 03/01 calcium, serum 9.4 mg/dL [facility] 8.6-10.4 Normal 03/01 carbon dioxide, venous blood 25 mmol/L [facility] 20-32 Normal 03/01 chloride, serum 106 mmol/L [facility] 98-110 Normal 03/01 potassium, serum 3.9 mmol/L [facility] 3.5-5.3 Normal 03/01 sodium, serum 140 mmol/L [facility] 135-146 Normal 03/01 urea nitrogen/creatinin e ratio, serum NOT APPLICABLE (calc) [facility] 6-22 03/01 creatinine, serum 0.79 mg/dL [facility] 0.50-1.03 Normal 03/01 urea nitrogen, blood 16 mg/dL [facility] 7-25 Normal 03/01 blood glucose, random 87 mg/dL [facility] 65-99 Normal 03/01 magnesium, serum 2.3 mg/dL [facility] 1.5-2.5 Normal 03/01 thyroid stimulating hormone, serum 0.99 u[IU]/mL [facility] Normal 03/01 free thyroxine index 2.1 [facility] 1.4-3.8 Normal 03/01 thyroxine, serum, total 7.6 ug/dL [facility] 5.1-11.9 Normal 03/01 triiodothyronine resin uptake 28 % [facility] 22-35 Normal 03/01 cholesterol, non-HDL, total 135 MG/DL (CALC) [facility] <130 High 03/01 cholesterol/HDL ratio, serum, percent 2.7 (calc) [facility] <5.0 Normal 03/01 LDL cholesterol, serum 108 MG/DL (CALC) [facility] High 03/01 triglyceride, serum, fasting 152 mg/dL [facility] <150 High 03/01 HDL cholesterol, serum 79 mg/dL [facility] > OR = 50 Normal 03/01 cholesterol, serum 214 mg/dL [facility] <200 High 12/11 prothrombin time (patient) 11.4 s [facility] 9.0-11.5 Normal [facility] [address] [place] [phone] Cal Hill MD 12/11 international normalized ratio (INR) 1.1 [facility] Normal [facility] [address] [place] [id number] Cal Hill MD HISTORY OF MEDICATION USE Medication Status Instructions Dates Provider Indications Com ments Wegovy 0.25 mg/0.5 mL pen injector active Inject 1/4 mg subcutaneously once a week as directed Inject 0.25 mg subcut once a week for 4 weeks. Chelsy Mejia topiramate 50 mg tablet active Murali Milian alprazolam 0.25 mg tablet active Murali Milian nortriptyline 25 mg capsule active Murali Milian meclizine 12.5 mg tablet active Murali vincent sertraline 100 mg tablet active Murali Milian atorvastatin 40 mg tablet [facility]-325 mg tablet completed Take 1 tablet every eight hours - Murali Barri cephalexin 500 mg tablet completed Take 1 tablet three times a day - Murali Milian citalopram 20 mg tablet completed 1 tablet once a day - Murali Milian CYCLOBENZAPRINE HCL 10 MG ORAL TABLET completed one tablet three times daily - Dena Bang OXYCODONE HCL 10 MG ORAL TABLET completed one tablet three times daily - Dena Bang ASPIRIN 81 MG ORAL TABLET completed 1 tablet once a day - Murali Milian ADVIL CAPSULE completed as needed - Murali Milian FLECAINIDE ACETATE 50 MG ORAL TABLET completed 1 tab every 12 hours - Wyatt Castle MD WARFARIN SODIUM 5 MG ORAL TABLET completed coumadin 5 mg Po daily start one week before the procedure - Guido Sepulveda SOCIAL HISTORY Date Observation Value Provider smoking status Never smoker Sumit Fish social history reviewed E&M revi ewed - no changes required Jesse Mejia smoking status Never smoker Jesse Catarina palencia social history reviewed E&M revi ewed - no changes required Jesse Mejia social history E&M Smoking Histo ry: Cally ojeda has never smoked. Jesse Mejia social history E&M S moking History: Cally ojeda has never smoked. Murali Milian social history reviewed E&M revi ewed - no changes required Murali Milian smoking status Never smoker Yolanda Carrero social history E&M S moking History: Cally ojeda has never smoked. Wyatt Castle MD social history reviewed E&M revi ewed - no changes required Wyatt Castle MD smoking status Never smoker Romy weathers smoking status Never smoker Dena Chavez social history reviewed E&M revi ewed - no changes required Dena Bang smoking status Never smoker Dena Chavez social history reviewed E&M revi ewed - no changes required Dena Bang social history E&M Smoking Histo ry: Cally ojeda has never smoked. Wyatt Castle MD social history reviewed E&M revi ewed - no changes required Wyatt Castle MD smoking status Never smoker Wyatt jacobo MD social history reviewed E&M revi ewed - no changes required Wyatt Castle MD number of grandchildren Wyatt Castle MD smoking status Never smoker Jennifer Cho social history E&M Smoking Histo ry: P lynette has never smoked. Wyatt Csatle MD social history reviewed E&M revi ewed - no changes required Wyatt Castle MD smoking status Never smoker Guido Anderson social history reviewed E&M revi ewed - no changes required Wyatt Castle MD smoking status Never smoker Kandace Wood FAMILY HISTORY Family Member Condition Mother Family History of Hy pertension: Father Family History of Co ronary Artery Disease: Father Family History of Hy pertension: INSURANCE PROVIDERS Payer name Policy type / Coverage type [place] [employer] party ID [employer] [place] [employer] [id number] [employer] [place] [employer] [id number] ADVANCE DIRECTIVES Name Date DISCUSSED - NO DECISION MADE TREATMENT PLAN Date Name Performer [id number],C,e ducation about the dit and medications was done. Her updated medication list for this problem includes: Atorvastatin 40 Mg Tablet (Atorvastatin) C HOL: 214 (03/01/2023) LDL: 108 MG/DL (CALC) (03/01/2023) HDL: 79 (03/01/2023) T (03/01/2023) Jesse Mejia [id number],C, S leep study pending Jesse Mejia [id number],C, R emained in SR during stress echo today. Jesse Mejia [id number],S, L ikely not cardiovascular related, may be muscular/skeletal pain. Jesse Mejia [id number],C, S tress test from 03/04 showed: 1 . Normal exercise capacity\par 2. Normal pressure rate product\par 3. Ischemic ST segment response to exercise\par 4. No chest pain provoked by treadmill exercise\par 5. No significant arrhythmias\par Echo from 03/04 was okay. Wyatt Castle MD [id number],C, H DL is good; LDL is 108 but will remain on Atorvastatin 40mg. H er updated medication list for this problem includes: Atorvastatin 40 Mg Tablet (Atorvastatin) Jesse Santanaharris [id number],W, W ill schedule Stress Echo Jesse Jackie [id number],C,will check up to date lab work Murali Benavidesdanelle [id number],C,d iscomfort like sxs which are associated to her palpitations Murali Milian [id number],S, Murali Barr i [id number],C,W ill check 1 week tele to assess for arrythmias Murali Milian [id number],C,s udden onset of dizziness daily which causes rapid HR and palpitations, will check routine stress to see if exercise induces sxs and arrythmias, will check echo to assess EF. Murali Milian Electrophysiology Saulius Netta russell MD Electrophysiology Frannyus Netta russell MD Electrophysiology ulius Netta russell MD Electrophysiology Saulius Kalvadar russell MD Electrophysiology Sumit Fish Electrophysiology Sumit Fish Electrophysiology: n o recurrence Sumit Fish Electrophysiology: n o SVT on recent monitr Sumit Fish Electrophysiology:ed ucation about the dit and medications was done. Her updated medication list for this problem includes: Atorvastatin 40 Mg Tablet (Atorvastatin) C HOL: 214 (03/01/2023) LDL: 108 MG/DL (CALC) (03/01/2023) HDL: 79 (03/01/2023) T (03/01/2023) Wyatt Castle MD Electrophysiology: S leep study pending Wyatt Castle MD Electrophysiology: R emained in SR during stress echo today. Wyatt Castle MD Electrophysiology: L ikely not cardiovascular related, may be muscular/skeletal pain. Jesse Santanaharris Electrophysiology: S tress test from 03/04 showed: 1 . Normal exercise capacity\par 2. Normal pressure rate product\par 3. Ischemic ST segment response to exercise\par 4. No chest pain provoked by treadmill exercise\par 5. No significant arrhythmias\par Echo from 03/04 was okay. Wyatt Castle MD Electrophysiology: H DL is good; LDL is 108 but will remain on Atorvastatin 40mg. H er updated medication list for this problem includes: Atorvastatin 40 Mg Tablet (Atorvastatin) Wyatt Castle MD Electrophysiology: W ill schedule Stress Echo Wyatt Castle MD Cardiology:will check up to date lab work Murali Milian Cardiology:discomfor t like sxs which are associated to her palpitations Murali Milian Cardiology Murali Milian Cardiology:Will chec k 1 week tele to assess for arrythmias Murali Milian Cardiology:sudden on set of dizziness daily which causes rapid HR and palpitations, will check routine stress to see if exercise induces sxs and arrythmias, will check echo to assess EF. 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 Wyatt Castle MD Electrophysiology:Co mplains of CP that radiates to her jaw, occurring at rest and after exertion. Wyatt Castle MD Electrophysiology: O rders: H olter Monitor 48 hr (CPT-83282) C BC (INCLUDES DIFF/PLT) (6399) C OMPREHENSIVE METABOLIC PANEL, W/EGFR (32999) L IPID PANEL (7600) T HYROID PANEL WITH TSH, 3RD GENERATION (7444) 9 9215 HIGH Complex (CPT-37858) The following medications were removed from the medication list: Flecainide Acetate 50 Mg Oral Tablet (Flecainide acetate) ..... 1 tab every 12 hours Her updated medication list for this problem includes: Aspirin 81 Mg Oral Tablet (Aspirin) ..... One tab. daily [facility] Electrophysiology: O rders: H olter Monitor 48 hr (CPT-40680) C BC (INCLUDES DIFF/PLT) (6399) C OMPREHENSIVE METABOLIC PANEL, W/EGFR (36135) L IPID PANEL (7600) T HYROID PANEL WITH TSH, 3RD GENERATION (7444) 9 9215 HIGH Complex (CPT-17677) Her updated medication list for this problem includes: Aspirin 81 Mg Oral Tablet (Aspirin) ..... One tab. daily [facility] Electrophysiology: O rders: S lee Study Home (CPT-67231) C BC (INCLUDES DIFF/PLT) (6399) C OMPREHENSIVE METABOLIC PANEL, W/EGFR (83082) L IPID PANEL (7600) T HYROID PANEL WITH TSH, 3RD GENERATION (7444) [facility] Electrophysiology: O rders: S lee Study Home (CPT-98587) C BC (INCLUDES DIFF/PLT) (6399) C OMPREHENSIVE METABOLIC PANEL, W/EGFR (03416) L IPID PANEL (7600) T HYROID PANEL WITH TSH, 3RD GENERATION (7444) 9 9215 HIGH Complex (CPT-69603) Her updated medication list for this problem includes: Aspirin 81 Mg Oral Tablet (Aspirin) ..... One tab. daily [facility] Electrophysiology: O rders: D evice Removal - [facility] (*) C BC (INCLUDES DIFF/PLT) (6399) C OMPREHENSIVE METABOLIC PANEL, W/EGFR (67279) L IPID PANEL (7600) T HYROID PANEL WITH TSH, 3RD GENERATION (7444) 9 9215 HIGH Complex (CPT-41527) Tristian Calloway Electrophysiology: O rders: M obile Cardiac Tele (CPT-14907) 9 9215 HIGH Complex (CPT-05038) C omplete Echo (CPT-50340) Her updated medication list for this problem includes: Aspirin 81 Mg Oral Tablet (Aspirin) ..... One tab. daily Flecainide Acetate 50 Mg Oral Tablet (Flecainide acetate) ..... 1 tab every 12 hours Tristian Calloway Electrophysiology:ca rdiac tele e cho Orders: M obile Cardiac Tele (CPT-42201) 9 9215 HIGH Complex (CPT-95725) C omplete Echo (CPT-82354) Her updated medication list for this problem includes: Aspirin 81 Mg Oral Tablet (Aspirin) ..... One tab. daily Flecainide Acetate 50 Mg Oral Tablet (Flecainide acetate) ..... 1 tab every 12 hours Tristian Calloway Electrophysiology: H er updated medication list for this problem includes: Aspirin 81 Mg Oral Tablet (Aspirin) ..... One tab. daily Tristian Calloway Cardiology faxed 02/13/17 1232:No recent recurrence. Wyatt Castle MD Cardiology faxed 01/19 05/05 1232: H er updated medication list for this problem includes: Aspirin 81 Mg Tabs (Aspirin) ..... One tab. daily Flecainide Acetate 50 Mg Oral Tabs (Flecainide acetate) ..... 1 tab every 12 hours Orders: 9 9215 HIGH Complex (CPT-48443) S NOMED-CT: [id number] Physical Exam, Performed: Pulse Exam of Foot ([id number]) E KG (501689) Wyatt Castle MD Cardiology faxed 01/19 05/05 1232:stress echo ordered l oop recorder in place will interrogate H er updated medication list for this problem includes: Aspirin 81 Mg Tabs (Aspirin) ..... One tab. daily Wyatt Castle MD EP faxed 03/14/16 092 7:Orders: E KG (CPT-28614) Her updated medication list for this problem includes: Aspirin 81 Mg Tabs (Aspirin) ..... One tab. daily Flecainide Acetate 50 Mg Oral Tabs (Flecainide acetate) ..... 1 tab every 12 hours Wyatt Castle MD EP faxed 03/14/16 092 7:Her updated medication list for this problem includes: Aspirin 81 Mg Tabs (Aspirin) ..... One tab. daily Flecainide Acetate 50 Mg Oral Tabs (Flecainide acetate) ..... 1 tab every 12 hours Wyatt Castle MD EP faxed 03/14/16 092 7: O rders: E KG (CPT-11945) Her updated medication list for this problem includes: Aspirin 81 Mg Tabs (Aspirin) ..... One tab. daily Flecainide Acetate 50 Mg Oral Tabs (Flecainide acetate) ..... 1 tab every 12 hours Wyatt Castle MD EP faxed 03/14/16 092 7: H er updated medication list for this problem includes: Aspirin 81 Mg Tabs (Aspirin) ..... One tab. daily Flecainide Acetate 50 Mg Oral Tabs (Flecainide acetate) ..... 1 tab every 12 hours Wyatt Castle MD EP faxed 03/14/16 092 7: H er updated medication list for this problem includes: Aspirin 81 Mg Tabs (Aspirin) ..... One tab. daily Flecainide Acetate 50 Mg Oral Tabs (Flecainide acetate) ..... 1 tab every 12 hours Wyatt Castle MD EP faxed 12/19/15 0801:S/P EP stud y, no ablation. Wyatt Castle MD Cardiology: O rders: Amarjit KG (CPT-14040) Wyatt Castle MD Cardiology:recommend EP study with possible arrhythmia ablation Wyatt Castle MD Date Name CardioIQ Advanced Li pid Panel with Inflammation ([facility]) Stress Echo Cortisol MAGNESIUM Lipoprotein (a) TSH, free T4, total T3 CBC (INCLUDES DIFF/P LT) HEMOGLOBIN A1c LIPID PANEL COMPREHENSIVE METABO LIC PANEL, W/EGFR Monitor - Telemetry (Mobile Cardiac) Stress Routine Complete Echo THYROID PANEL WITH T SH, 3RD GENERATION LIPID PANEL COMPREHENSIVE METABO LIC PANEL, W/EGFR CBC (INCLUDES DIFF/P LT) Holter Monitor 48 hr Device Removal - [facility] V Sleep Study Home Complete Echo Mobile Cardiac Tele EKG STR - Echo PROTHROMBIN TIME WIT H INR PARTIAL THROMBOPLAST IN TIME, ACTIVATED PROTHROMBIN TIME WIT H INR CBC (INCLUDES DIFF/P LT) BASIC METABOLIC PANE L W/EGFR ABLATION w/ Anesthes ia HISTORY OF PROCEDURES Procedure Date Procedure Name Provider Procedure Notes S tatus Schedule Followup Wyatt russell MD 6 month follow up completed EKG Wyatt simon MD completed EKG Wyatt simon MD completed EKG Wyatt simon MD completed EKG Wyatt simon MD completed Stress EKG Wyatt simon MD completed Cardiolite, 2 units Rick Oneal MD completed SPECT Images Rick Oneal MD completed Event Monitor Lucy Mora completed EKG Wyatt simon MD completed SNOMED-CT: [id number] Current Medications Documented Wyatt Castle MD completed Schedule Followup Wyatt russell MD in one year completed SNOMED-CT: [id number] Physical Exam, Performed: Pulse Exam of Foot Wyatt Castle MD completed Schedule Followup Wyatt russell MD completed EKG Wyatt simon MD completed SNOMED-CT: [id number] Current Medications Documented Wyatt Castle MD completed Schedule Followup Wyatt russell MD 3 months completed EKG Wyatt simon MD completed SNOMED-CT: [id number] Current Medications Documented Wyatt Castle MD completed EKG Wyatt simon MD completed SNOMED-CT: 050685820345954 Current Medications Documented Wyatt Castle MD completed
--- OUTSIDE RECORDS SUMMARY | 2025-03-07 08:23 | XMS_ITS | Encounter Summary ---
Author Organization [facility] Healthcare Address [address] [place] [address] Care Team Providers Care Debt And Budget Counselor Name Role Phone Amrik Jeffrey MD Primary Care Provider [phone] Stephanie Burr MD Unavailable [phone] Bernadine Rojas MA Unavailable Damaris Fox MD Primary Care Provide r Encounter Details Date Type Department Care Team (Late st Contact Info) Description 04/17/2020 Telephone [facility] [address] [place] [address] Wilfred Rai, RT Social History Tobacco Use Types Packs/Day Years Used Date Smoking Tobacco: Never Smokeless Tobacco: Never Alcohol Use Standard Drinks/Week Comments Not Currently 0 (1 standard drink = 0.6 oz pur e alcohol) AUDIT-C Answer Date Recorded Frequency of Alcohol Consumption Monthly or less 12/07/2019 Average Number of Drinks 1 or 2 020 Frequency of Binge Drinking Not on file 11/20 PHQ-2 Answer Date Recorded PHQ-2 Score 0 12/27/2019 Comments No Sex and Gender Information Value Date Recorded Sex Assigned at Not on file Legal Sex Female 11:55 PM LEATHER CRAFTER Gender Identity Not on file Sexual Orientation Not on file documented as of this encounter Plan of Treatment Not on file documented as of this encounter Visit Diagnoses Not on filedocumented in this encounter Additional Health Concerns Infection Onset Date Last Indicated Resolved Time COVID: Suspected 07/31/2021 07/31/2021 08/01/2021 7:00 AM CDT COVID: Suspected 09/25/2021 09/25/2021 09/25/2021 1:51 AM LEATHER CRAFTER COVID: Suspected 01/19/2025 01/19/2025 01/19/2025 10:15 AM CDT COVID19 01/19/2025 01/19/2025 01/29/2025 3:05 AM CDT COVID: Recovered Comment:Added based on recent COVID infection. 01/29/2025 02/09/2025 documented as of this encounter Care Teams Debt And Budget Counselor Relationship Specialty Start Date End Date Amrik Jeffrey MD PCP - General 07/27/13 03/19/22 Damaris Fox MD [address] [facility] [address] [facility] [address] [place] [id number] PCP - General Family Medicine 03/20/22 Stephanie Burr MD Consulting Physician Gastroenterology 02/24/18 Bernadine Rojas MA [address] [place] [address] [address] [facility] [address] [place] [address] [employer]ce [employer] 09/26/21 10/07/21 documented as of this encounter
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
[2025-03-07 08:30] VITALS: BP 147/88; PULSE 105; RESP 26; TEMP 36.4; O2SAT 100
[2025-03-07 08:52] LABS: Basophils Absolute Auto 0.1 K/mm3 (0.0-0.1); Eosinophils Percent Auto 0.2 % (0-4.4); Hematocrit 42.6 % (37.0-47.0); Hemoglobin 13.6 g/dL (12.0-15.0); Immature Granulocyte Absolute 0.02 K/mm3 (0.00-0.031); Immature Granulocyte Percent A 0.3 % (0-0.5); Lymphocytes Absolute Auto 1.68 K/mm3 (0.9-3.2); Lymphocytes Percent Auto 27.4 % (18.3-44.2); Mean Corpuscular HGB Conc 31.9 g/dl (32-36); Mean Corpuscular Hemoglobin 28.9 pg (26-34); Mean Corpuscular Volume 90.4 fl (80-100); Mean Platelet Volume 9.3 fl (7.4-10.4); Monocytes Absolute Auto 0.3 K/mm3 (0.1-0.6); Monocytes Percent Auto 4.1 % (2.6-8.5); Neutrophils Absolute Auto 4.1 K/mm3 (1.3-6.7); Platelet Count Result 383 k/mm3 (150-375); Red Blood Count 4.71 M/mm3 (4.2-5.4); Red Cell Distribution Width 12.8 % (11.5-14.5); White Blood Count 6.1 K/mm3 (4.5-10.0)
[2025-03-07 09:01] LABS: Alanine Aminotransferase 30 U/L (6-35); Albumin Level 4.9 g/dL (3.5-5.1); Alkaline Phosphatase 98 U/L (38-126); Anion Gap 11 mmol/L (4-12); Aspartate Amino Transferase 31 U/L (14-36); Bilirubin,Total 0.5 mg/dL (0.2-1.3); Blood Urea Nitrogen 16 mg/dL (7-17); Calcium 9.4 mg/dL (8.4-10.2); Carbon Dioxide 22 mmol/L (22-30); Chloride 106 mmol/L (98-107); Estimated Glomerular Filt Rate > 60; Glucose 122 mg/dL (65-110); Lipase 181 U/L (23-300); Sodium 139 mmol/L (137-145)
--- NOTE | 2025-03-07 09:23 | ED_ITS ---
HPI - Abdominal Pain General Chief Complaint: Abdominal Pain <MICHELLE Vernon Last Filed: 03/07/25 13:42> Stated Complaint: abd pain <MICHELLE Vernon Last Filed: 03/07/25 13:42> Time Seen by Provider: 03/07/25 09:13 <Anna Toth PA-C - Last Filed: 03/07/25 13:42> Source: patient <MICHELLE Vernon Last Filed: 03/07/25 13:42> Mode of arrival: ambulatory <MICHELLE Vernon Last Filed: 03/07/25 13:42> Limitations: no limitations <MICHELLE Vernon Last Filed: 03/07/25 13:42> History of Present Illness HPI narrative: This is a 55-year-old female that presents to the emergency department for left flank pain. Ongoing since earlier this morning. Reports history of kidney stones. Reports nausea. Denies fevers, vomiting, dysuria, hematuria. <MICHELLE Vernon Last Filed: 03/07/25 13:42> Related Data Home Medications: Home Medications ?Medication ?Instructions ?Recorded ?Confirmed ?Last Taken ?Type alprazolam 0.25 mg tablet 0.25 mg PO TID PRN anxiety 07/24/20 03/07/25 03/06/25 History nortriptyline 25 mg capsule 50 mg PO HS 05/11/22 03/07/25 03/06/25 History sertraline 100 mg tablet 100 mg PO DAILY 05/11/22 03/07/25 03/06/25 History topiramate 50 mg tablet 50 mg PO BID 05/11/22 03/07/25 03/06/25 History atorvastatin 40 mg tablet 40 mg PO DAILY 10/22/23 03/07/25 03/06/25 History cyanocobalamin (vitamin B-12) 100 100 mcg .every 3 days 11/08/23 Unknown History mcg/mL injection syringe famotidine 20 mg tablet 20 mg PO BID 11/08/23 03/07/25 Unknown History cetirizine 5 mg-pseudoephedrine ER 1 tablet PO BID 03/07/25 03/07/25 Unknown History 120 mg tablet,extended release,12hr (All Day Allergy-D) cholecalciferol (vitamin D3) 10 400 unit PO DAILY 03/07/25 03/07/25 Unknown History mcg (400 unit) capsule dihydroergotamine (Trudhesa) 1 spray intranasal DAILY PRN 03/07/25 03/07/25 Unknown History congestion erenumab-aooe 140 mg/mL 140 mg subcut .every 30 days 03/07/25 03/07/25 Unknown History subcutaneous auto-injector (Aimovig Autoinjector) esomeprazole magnesium 40 mg 40 mg PO DAILY 03/07/25 03/07/25 Unknown History granules delayed release for susp insulin syringe-needle U-100 1 mL 03/07/25 03/07/25 Unknown History 31 gauge x 5/16 (Sure Comfort Insulin Syringe) meclizine 12.5 mg tablet 12.5 mg PO TID PRN dizziness 03/07/25 03/07/25 Unknown History ondansetron 4 mg disintegrating 4 mg PO Q6H PRN nausea and vomiting 03/07/25 03/07/25 Unknown History tablet phenazopyridine 200 mg tablet 200 mg PO TID PRN pain 03/07/25 03/07/25 Unknown History semaglutide 0.25 mg or 0.5 mg (2 0.25 mg subcut WEEKLY 03/07/25 03/07/25 Unknown History mg/3 mL) subcutaneous pen injector tramadol 50 mg tablet 50 mg PO Q6H PRN pain 03/07/25 03/07/25 Unknown History <Anna Toth PA-C - Last Filed: 03/07/25 13:42> Allergies/Adverse Reactions: Allergies Allergy/AdvReac Type Severity Reaction Status Date / Time Sulfa (Sulfonamide Allergy Unknown unknown Verified 11/08/23 08:56 Antibiotics) <Anna Toth PA-C - Last Filed: 03/07/25 13:42> Review of Systems 2 Review of Systems: CONSTITUTIONAL: Denies fever GASTROINTESTINAL: Reports abdominal pain, nausea. Denies vomiting, or diarrhea. GENITOURINARY: Denies dysuria or hematuria. <Anna Toth PA-C - Last Filed: 03/07/25 13:42> All systems reviewed & are unremarkable except as noted in HPI and below < Anna Toth PA-C - Last Filed: 03/07/25 13:42> PMFSH Past Medical History Medical History: Medical History (Updated 03/07/25 @ 14:01 by Jazmín Jesus APRN) Rib fractures Depression Anxiety Vaginal delivery x 2 <Anna Toth PA-C - Last Filed: 03/07/25 13:42> Surgical History Surgical History: Surgical History History of endometrial ablation History of cholecystectomy History of bilateral tubal ligation History of partial pancreatectomy <MICHELLE Vernon Last Filed: 03/07/25 13:42> Family History Family History: Family History Mother Hypertension Father Family history of elevated blood lipids Family history of coronary artery disease Grandparent Family history of malignant neoplasm of male breast, Onset Age: 58 Family history of coronary artery disease, Onset Age: 55 <Anna Toth PA-C - Last Filed: 03/07/25 13:42> Social History Social History: Social History Smoking status: Never smoker Second hand tobacco smoke exposure: No Alcohol intake: never Substance use: never Do You Feel Safe in your Home?: Yes Lack of Transportation: No Lack of Food: Never True Current Housing: I Have Housing Concerned About Future Housing: No Difficulty Paying Gas/Electric Bills: No Difficulty Paying for Meds: No Currently Unemployed: No Education: Associate Degree Difficulty w/ Childcare or Family Care: No Living arrangements: with family Gender identity (if verbalized by the patient): Female Sexual Orientation (if Verbalized by the Patient): Straight or Heterosexual Spiritual care concerns: No <MICHELLE Vernon Last Filed: 03/07/25 13:42> Exam 2 Narrative: GENERAL: Uncomfortable, well-nourished, and in no acute distress. HEAD: Normocephalic, atraumatic. EYES: EOMI. CHEST: Clear to auscultation. No respiratory distress. No wheezes rales or rhonchi HEART: Regular rate and rhythm. No murmur heard. Normal peripheral pulses. ABDOMEN: Soft, nontender, nondistended, normal active bowel sounds. EXTREMITIES: Normal range of motion. No edema. SKIN: Warm, dry, no rash. NEURO: No focal deficits. Alert and oriented x3. PSYCH: Normal mood and affect <Anna Toth PA-C - Last Filed: 03/07/25 13:42> Course Course Emergency Course: Patient updated on her workup. Still quite uncomfortable after morphine, Dilaudid, Toradol. Will admit for pain <Anna Toth PA-C - Last Filed: 03/07/25 13:42> SCOURING PADS SUPERVISOR/PA Physician Supervision I was made aware that SHANIKA was consulting urology for patient. While patient was in the department I was therefore available for consultation as needed but did not physically examine patient and was not directly involved in their care. <Miley Hamm MD - Last Filed: 03/07/25 21:53> Consultations Consultation #1: Spoke with Urology who will consult <Anna Toth PA-C - Last Filed: 03/07/25 13:42> Date: 03/07/25 <Anna Toth PA-C - Last Filed: 03/07/25 13:42> Consultation #2: Spoke with hospitalist about patient and workup who accepts admission < Anna Toth PA-C - Last Filed: 03/07/25 13:42> Date: 03/07/25 <Anna Toth PA-C - Last Filed: 03/07/25 13:42> Vital Signs Vital signs: Vital Signs Temperature 97.6 F 03/07/25 08:30 Pulse Rate 105 H 03/07/25 08:30 Respiratory Rate 26 H 03/07/25 08:30 Blood Pressure 147/88 H 03/07/25 08:30 Pulse Oximetry 100 03/07/25 08:30 Oxygen Delivery Room Air 03/07/25 08:30 Temperature 96.4 F L 03/07/25 21:08 Pulse Rate 104 H 03/07/25 21:08 Respiratory Rate 16 03/07/25 21:08 Blood Pressure 121/61 03/07/25 21:08 Pulse Oximetry 99 03/07/25 21:08 Oxygen Delivery Room Air 03/07/25 14:00 <Anna Toth PA-C - Last Filed: 03/07/25 13:42> Vital Signs Temperature 97.6 F 03/07/25 08:30 Pulse Rate 105 H 03/07/25 08:30 Respiratory Rate 26 H 03/07/25 08:30 Blood Pressure 147/88 H 03/07/25 08:30 Pulse Oximetry 100 03/07/25 08:30 Oxygen Delivery Room Air 03/07/25 08:30 Temperature 96.4 F L 03/07/25 21:08 Pulse Rate 104 H 03/07/25 21:08 Respiratory Rate 16 03/07/25 21:08 Blood Pressure 121/61 03/07/25 21:08 Pulse Oximetry 99 03/07/25 21:08 Oxygen Delivery Room Air 03/07/25 14:00 <Miley Hamm MD - Last Filed: 03/07/25 21:53> MDM - Abdominal Pain MDM Narrative Medical decision making narrative: Patient presents to the emergency department for left flank pain. She is afebrile and nontoxic appearing. Tachycardic upon arrival, this normalized with IV fluids. Cbc without leukocytosis. Metabolic panel with normal kidney function. Urine without evidence of infection. CT abdomen pelvis shows a 2-3 mm left ureteral stone. Patient updated on her workup. Still quite uncomfortable after morphine, Dilaudid, Toradol. Will admit for pain <Anna Toth PA-C - Last Filed: 03/07/25 13:42> Differential Diagnosis Differential diagnosis: Likely calculus of kidney, diverticulitis and other (UTI, muscle strain, muscle spasm, radiculopathy) <Anna Toth PA-C - Last Filed: 03/07/25 13:42> Lab Data Attestation: I reviewed the patient's lab results. <Anna Toth PA-C - Last Filed: 03/07/25 13:42> Result diagrams: 03/07/25 08:42 03/07/25 08:42 <MICHELLE Vernon Last Filed: 03/07/25 13:42> Labs: Lab Results 03/07/25 03/07/25 Range/Units 08:42 11:09 WBC 6.1 (4.5-10.0) K/mm3 RBC 4.71 (4.2-5.4) M/mm3 Hgb 13.6 (12.0-15.0) g/dL Hct 42.6 (37.0-47.0) % MCV 90.4 (80-100) fl MCH 28.9 (26-34) pg MCHC 31.9 L (32-36) g/dl RDW 12.8 (11.5-14.5) % Plt Count 383 H (150-375) k/mm3 MPV 9.3 (7.4-10.4) fl Immature Gran % (Auto) 0.3 (0-0.5) % Neut % (Auto) 67.0 (45.5-73.1) % Lymph % (Auto) 27.4 (18.3-44.2) % Baldwin % (Auto) 4.1 (2.6-8.5) % Eos % (Auto) 0.2 (0-4.4) % Baso % (Auto) 1.0 (0.2-1.2) % Lymph # (Auto) 1.68 (0.9-3.2) K/mm3 Baldwin # (Auto) 0.3 (0.1-0.6) K/mm3 Eos # (Auto) 0.0 (0-0.3) K/mm3 Baso # (Auto) 0.1 (0.0-0.1) K/mm3 Abs Immat Gran (auto) 0.02 (0.00-0.031) K/mm3 Absolute Neuts (auto) 4.1 (1.3-6.7) K/mm3 Absolute Nucleated RBC 0.000 (0.0-0.012) K/mm3 Nucleated RBC % 0.0 (0.0-0.2) % Sodium 139 (137-145) mmol/L Potassium 4.0 (3.4-5.0) mmol/L Chloride 106 (98-107) mmol/L Carbon Dioxide 22 (22-30) mmol/L Anion Gap 11 (4-12) mmol/L BUN 16 (7-17) mg/dL Creatinine 0.65 L (0.7-1.0) mg/dL Estim Creat Clear Calc Not Reportable Estimated GFR > 60 (59 - ) Glucose 122 H (65-110) mg/dL Calcium 9.4 (8.4-10.2) mg/dL Total Bilirubin 0.5 (0.2-1.3) mg/dL AST 31 (14-36) U/L ALT 30 (6-35) U/L Alkaline Phosphatase 98 (38-126) U/L Total Protein 8.0 (6.3-8.2) g/dL Albumin 4.9 (3.5-5.1) g/dL Lipase 181 (23-300) U/L Urine Color Yellow (Yellow) Urine Appearance Clear (Clear) Urine pH 7.5 (5.0-9.0) Ur Specific [place] 1.008 (1.001-1.035) Urine Protein Negative (Negative) mg/dL Urine Glucose (UA) Negative (Negative) mg/dL Urine Ketones Trace H (Negative) mg/dL Ur Blood (Man) 3+ H (Negative) Urine Nitrate Negative (Negative) Urine Bilirubin Negative (Negative) Urine Urobilinogen 0.2 (<2.0) mg/dL Leukocyte Esterase Rfl Negative (Negative) ADAMA/UL Urine RBC 11-20 H (0-2) /hpf Urine WBC 0-5 (0-3) /hpf Ur Squamous Epith Cells None seen (Few) /hpf Urine Bacteria None seen /hpf Urine Casts 0-2 <Anna Toth PA-C - Last Filed: 03/07/25 13:42> Lab Results 03/07/25 03/07/25 Range/Units 08:42 11:09 WBC 6.1 (4.5-10.0) K/mm3 RBC 4.71 (4.2-5.4) M/mm3 Hgb 13.6 (12.0-15.0) g/dL Hct 42.6 (37.0-47.0) % MCV 90.4 (80-100) fl MCH 28.9 (26-34) pg MCHC 31.9 L (32-36) g/dl RDW 12.8 (11.5-14.5) % Plt Count 383 H (150-375) k/mm3 MPV 9.3 (7.4-10.4) fl Immature Gran % (Auto) 0.3 (0-0.5) % Neut % (Auto) 67.0 (45.5-73.1) % Lymph % (Auto) 27.4 (18.3-44.2) % Baldwin % (Auto) 4.1 (2.6-8.5) % Eos % (Auto) 0.2 (0-4.4) % Baso % (Auto) 1.0 (0.2-1.2) % Lymph # (Auto) 1.68 (0.9-3.2) K/mm3 Baldwin # (Auto) 0.3 (0.1-0.6) K/mm3 Eos # (Auto) 0.0 (0-0.3) K/mm3 Baso # (Auto) 0.1 (0.0-0.1) K/mm3 Abs Immat Gran (auto) 0.02 (0.00-0.031) K/mm3 Absolute Neuts (auto) 4.1 (1.3-6.7) K/mm3 Absolute Nucleated RBC 0.000 (0.0-0.012) K/mm3 Nucleated RBC % 0.0 (0.0-0.2) % Sodium 139 (137-145) mmol/L Potassium 4.0 (3.4-5.0) mmol/L Chloride 106 (98-107) mmol/L Carbon Dioxide 22 (22-30) mmol/L Anion Gap 11 (4-12) mmol/L BUN 16 (7-17) mg/dL Creatinine 0.65 L (0.7-1.0) mg/dL Estim Creat Clear Calc Not Reportable Estimated GFR > 60 (59 - ) Glucose 122 H (65-110) mg/dL Calcium 9.4 (8.4-10.2) mg/dL Total Bilirubin 0.5 (0.2-1.3) mg/dL AST 31 (14-36) U/L ALT 30 (6-35) U/L Alkaline Phosphatase 98 (38-126) U/L Total Protein 8.0 (6.3-8.2) g/dL Albumin 4.9 (3.5-5.1) g/dL Lipase 181 (23-300) U/L Urine Color Yellow (Yellow) Urine Appearance Clear (Clear) Urine pH 7.5 (5.0-9.0) Ur Specific [place] 1.008 (1.001-1.035) Urine Protein Negative (Negative) mg/dL Urine Glucose (UA) Negative (Negative) mg/dL Urine Ketones Trace H (Negative) mg/dL Ur Blood (Man) 3+ H (Negative) Urine Nitrate Negative (Negative) Urine Bilirubin Negative (Negative) Urine Urobilinogen 0.2 (<2.0) mg/dL Leukocyte Esterase Rfl Negative (Negative) ADAMA/UL Urine RBC 11-20 H (0-2) /hpf Urine WBC 0-5 (0-3) /hpf Ur Squamous Epith Cells None seen (Few) /hpf Urine Bacteria None seen /hpf Urine Casts 0-2 <Miley Hamm MD - Last Filed: 03/07/25 21:53> Imaging Data Radiologist's impression: ITS Impressions Abdomen/Pelvis CT 03/07/25 09:54 IMPRESSION: 1. Bilateral nephrolithiasis with 2-3 mm stone at the proximal left ureter with mild left hydronephrosis. 2. Small loop of nonobstructed small bowel extends into a small widemouthed umbilical hernia. Additional small fat-containing supraumbilical ventral hernia. 3. Very small pericardial effusion. Abdomen X-Ray 03/07/25 10:58 IMPRESSION: NO ACUTE ABDOMINAL FINDINGS. <Anna Toth PA-C - Last Filed: 03/07/25 13:42> ITS Impressions Abdomen/Pelvis CT 03/07/25 09:54 IMPRESSION: 1. Bilateral nephrolithiasis with 2-3 mm stone at the proximal left ureter with mild left hydronephrosis. 2. Small loop of nonobstructed small bowel extends into a small widemouthed umbilical hernia. Additional small fat-containing supraumbilical ventral hernia. 3. Very small pericardial effusion. Abdomen X-Ray 03/07/25 10:58 IMPRESSION: NO ACUTE ABDOMINAL FINDINGS. <Miley Hamm MD - Last Filed: 03/07/25 21:53> Critical Care Time Critical Care Time Critical Care Time: No <Anna Toth PA-C - Last Filed: 03/07/25 13:42> Discharge Plan Discharge Clinical Impression: Ureterolithiasis <Anna Toth PA-C - Last Filed: 03/07/25 13:42> Patient Disposition: Still a Patient <Anna Toth PA-C - Last Filed: 03/07/25 13:42> Condition: Stable <Anna Toth PA-C - Last Filed: 03/07/25 13:42>
[2025-03-07] MEDS: MORPHINE SULFATE (*CRX) 4 MG/ML INJ IV PUSH (09:34)
[2025-03-07] MEDS: ONDANSETRON INJ 4 MG/2 ML VIAL IV PUSH (09:35)
[2025-03-07] MEDS: SODIUM CHLORIDE 0.9% IV 1,000 ML 999 ML IV CONT (09:37)
--- NOTE | 2025-03-07 09:57 | PC.NURSE ---
asked patient if she could provide urine sample. patient states she is in too much pain to get up right now. MAGED tovar.
[2025-03-07] MEDS: HYDROmorphone HCL INJ (*CRX) 2 MG/ML VIAL 0.5 MG IV PUSH ×3 (10:04→19:29)
[2025-03-07 10:06] VITALS: BP 133/89; PULSE 94; RESP 14
[2025-03-07] MEDS: KETOROLAC 15 MG/ML VIAL (*BKC) IV PUSH ×3 (10:26→17:29)
--- OUTSIDE RECORDS SUMMARY | 2025-03-07 10:26 | XMS_ITS | Encounter Summary ---
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
--- OUTSIDE RECORDS SUMMARY | 2025-03-07 10:26 | XMS_ITS | Encounter Summary ---
Author Organization [facility] Healthcare Address [address] [place] [id number] Care Team Providers Care Net Software Engineer Name Role Phone Amrik Jeffrey MD Primary Care Provider [phone] Stephanie Burr MD Unavailable [phone] Bernadine Rojas MA Unavailable Damaris Fox MD Primary Care Provide r Encounter Details Date Type Department Care Team (Late st Contact Info) Description 09/16/2018 Orders Only [facility] [address] [place] [address] Makenna Hoang MD [address] [facility] [address] [place] [address] Social History Tobacco Use Types Packs/Day Years Used Date Smoking Tobacco: Never Smokeless Tobacco: Never Alcohol Use Standard Drinks/Week Comments Yes 0 (1 standard drink = 0.6 oz pur e alcohol) Comments No Sex and Gender Information Value Date Recorded Sex Assigned at Not on file 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 Gender Identity Not on file Sexual Orientation Not on file documented as of this encounter Plan of Treatment Not on file documented as of this encounter Visit Diagnoses Not on filedocumented in this encounter Additional Health Concerns Infection Onset Date Last Indicated Resolved Time COVID: Suspected 07/31/2021 07/31/2021 08/01/2021 7:00 AM CDT COVID: Suspected 09/25/2021 09/25/2021 09/25/2021 1:51 AM AVIATION PROGRAM MANAGER COVID: Suspected 01/19/2025 01/19/2025 01/19/2025 10:15 AM CDT COVID19 01/19/2025 01/19/2025 01/29/2025 3:05 AM CDT COVID: Recovered Comment:Added based on recent COVID infection. 01/29/2025 02/09/2025 documented as of this encounter Care Teams Net Software Engineer Relationship Specialty Start Date End Date Amrik Jeffrey MD PCP - General 07/27/13 03/19/22 Damaris Fox MD [address] [facility] [address] [facility] [address] [place] [id number] PCP - General Family Medicine 03/20/22 Stephanie Burr MD Consulting Physician Gastroenterology 02/24/18 Bernadine Rojas MA [address] [place] [address] [address] [facility] [address] [place] [address] ACO Care Curriculum Coach 09/26/21 10/07/21 documented as of this encounter
--- OUTSIDE RECORDS SUMMARY | 2025-03-07 10:26 | XMS_ITS | CONTINUITY OF CARE DOCUMENT ---
Author Name lacy house Address Unknown Organization [facility] Address [address] [place] [address] Phone [phone] Care Team Providers Care Sap Mobility Architect Name Role Phone Tin MORALES, Wyatt Unavailable [phone] JANINA MADRID Unavailable [phone] JANINA MADRID Unavailable PROBLEMS Condition Status Date Provider Notes Dizziness active Murali Milian Family hx of heart disease active Murali rahman Hyperlipidemia active Murali Milian Snoring - JOAQUÍN? active Wyatt Castle MD Obesity active Wyatt Castle MD Fatigue active Wyatt Castle MD Shortness of breath active Wyatt simon MD Syncope active Wyatt Castle MD Chest pain-type to be determined active Wyatt Castle MD Palpitations active Wyatt Castle MD Presence of implantable loop recorder active Wyatt Castle MD SVT active Wyatt Castle MD Other symptoms involving cardiovascular system completed - Wyatt Castle MD Other symptoms involving cardiovascular system completed - Wyatt Castle MD ENCOUNTERS Date Type Provider Location Encounter Diag nosis - In-person encounter Office Visit Wyatt Castle MD [facility] - In-person encounter Office Visit Wyatt Castle MD [facility] - In-person encounter Office Visit Wyatt Castle MD [facility] - In-person encounter Office Visit Wyatt Castle MD [facility] HyperlipidemiaFamily hx of heart diseaseDizziness - In-person encounter Office Visit Wyatt Castle MD [facility] - In-person encounter Office Visit Wyatt Castle MD [facility] Snoring - JOAQUÍN? - In-person encounter Office Visit Wyatt Castle MD [facility] - In-person encounter Office Visit Wyatt Castle MD [facility] SVTPresence of implantable loop recorderChest pain-type to be determinedSyncopeShortness of breathFatigueObesity - In-person encounter Office Visit Wyatt Castle MD [facility] - In-person encounter Office Visit Wyatt Castle MD [facility] Other symptoms involving cardiovascular systemOther symptoms involving cardiovascular systemPresence of implantable loop recorderPalpitations - In-person encounter Office Visit Wyatt Castle MD [facility] SVT VITAL SIGNS Date Observation Value [...] rri Maxuenenfelder blood pressure, systolic 112 mm[Hg] Beata ri Orquideaelder oxygen saturation, oximetry 99 % [facility] respiratory rate E&M 12 /min Chelsy Burrows [...] 03/01 Absolute Neutrophil count 2447 cells/mcL [employer] [id number] Normal 03/01 mean platelet volume 9.6 fL [...] time (patient) 11.4 s [facility] 9.0-11.5 [facility] [address] [place] [id number] Cal Hill MD 12/11 international normalized ratio (INR) 1.1 [facility] [address] [place] [id number] Cal Hill MD HISTORY OF MEDICATION USE [...] Murali Milian atorvastatin 40 mg tablet [facility] Percocet 5-325 mg tablet completed Take 1 [...] ry: P lynette has never smoked. Wyatt Castle MD social [...] Payer name Policy type / Coverage type [place] [employer] party ID [employer] [place] [id number] [place] [id number] ADVANCE DIRECTIVES Name Date DISCUSSED - NO DECISION MADE TREATMENT PLAN Date Name Performer [id number],C,e ducation about the dit and medications was done. Her updated medication list for this problem includes: Atorvastatin 40 Mg Tablet (Atorvastatin) C HOL: 214 (03/01/2023) LDL: 108 MG/DL (CALC) (03/01/2023) HDL: 79 (03/01/2023) T (03/01/2023) Jesse Mejia [id number],C, S leep study pending Jesse Mejia [id number],C, R emained in SR during stress echo today. Jesse Mejia [id number],S, L ikely not cardiovascular related, may be muscular/skeletal pain. Jesse Mejia [id number],C, S tress test from 03/04 showed: 1 . Normal exercise capacity\par 2. Normal pressure rate product\par 3. Ischemic ST segment response to exercise\par 4. No chest pain provoked by treadmill exercise\par 5. No significant arrhythmias\par Echo from 03/04 was okay. Wyatt Castle MD [id number],C, H DL is good; LDL is 108 but will remain on Atorvastatin 40mg. H er updated medication list for this problem includes: Atorvastatin 40 Mg Tablet (Atorvastatin) Jesse Santanaharris [id number],W, W ill schedule Stress Echo Jesse Jackie [id number],C,will check up to date lab work Murali Benavidesdanelle [id number],C,d iscomfort like sxs which are associated to her palpitations Murali Milian [id number],S, Murali Barr i [id number],C,W ill check 1 week tele to assess for arrythmias Murali Milian [id number],C,s udden onset of dizziness daily which causes [...] O rders: H olter Monitor 48 hr (CPT-98577) C BC (INCLUDES DIFF/PLT) (6399) C OMPREHENSIVE METABOLIC PANEL, W/EGFR (96642) L IPID PANEL (7600) T HYROID PANEL WITH TSH, 3RD GENERATION (7444) 9 9215 HIGH Complex (CPT-46635) The following medications were removed from the medication list: Flecainide Acetate 50 Mg Oral Tablet (Flecainide acetate) ..... 1 tab every 12 hours Her updated medication list for this problem includes: Aspirin 81 Mg Oral Tablet (Aspirin) ..... One tab. daily [facility] Electrophysiology: O rders: H olter Monitor 48 hr (CPT-89815) C BC (INCLUDES DIFF/PLT) (6399) C OMPREHENSIVE METABOLIC PANEL, W/EGFR (58389) L IPID PANEL (7600) T HYROID PANEL WITH TSH, 3RD GENERATION (7444) 9 9215 HIGH Complex (CPT-70206) Her updated medication list for this problem includes: Aspirin 81 Mg Oral Tablet (Aspirin) ..... One tab. daily [facility] Electrophysiology: O rders: S lee Study Home (CPT-36881) C BC (INCLUDES DIFF/PLT) (6399) C OMPREHENSIVE METABOLIC PANEL, W/EGFR (83740) L IPID PANEL (7600) T HYROID PANEL WITH TSH, 3RD GENERATION (7444) [facility] Electrophysiology: O rders: S lee Study Home (CPT-12799) C BC (INCLUDES DIFF/PLT) (6399) C OMPREHENSIVE METABOLIC PANEL, W/EGFR (58802) L IPID PANEL (7600) T HYROID PANEL WITH TSH, 3RD GENERATION (7444) 9 9215 HIGH Complex (CPT-72416) Her updated medication list for this problem includes: Aspirin 81 Mg Oral Tablet (Aspirin) ..... One tab. daily [facility] Electrophysiology: O rders: D evice Removal - [facility] (*) C BC (INCLUDES DIFF/PLT) (6399) C OMPREHENSIVE METABOLIC PANEL, W/EGFR (44130) L IPID PANEL (7600) T HYROID PANEL WITH TSH, 3RD GENERATION (7444) 9 9215 HIGH Complex (CPT-92650) [facility] Electrophysiology: O rders: M obile Cardiac Tele (CPT-71870) 9 9215 HIGH Complex (CPT-59237) C omplete Echo (CPT-51521) Her updated medication list for this problem includes: Aspirin 81 Mg Oral Tablet (Aspirin) ..... One tab. daily Flecainide Acetate 50 Mg Oral Tablet (Flecainide acetate) ..... 1 tab every 12 hours [facility] Callow[facility] Electrophysiology:ca rdiac tele e cho Orders: M obile Cardiac Tele (CPT-55523) 9 9215 HIGH Complex (CPT-56986) C omplete Echo (CPT-16348) Her updated medication list for this problem [...] 12 hours Orders: 9 9215 HIGH Complex (CPT-70755) S NOMED-CT: [id number] Physical Exam, Performed: Pulse Exam of Foot (SCT-[id number]) E KG (486091) Wyatt Castle MD Cardiology faxed 01/19 05/05 1232:stress echo ordered l oop recorder in place will interrogate H er updated medication list for this problem includes: Aspirin 81 Mg Tabs (Aspirin) ..... One tab. daily Wyatt Castle MD EP faxed 03/14/16 092 7:Orders: E KG (CPT-36799) Her updated medication list for this problem [...] 03/14/16 092 7: O rders: E KG (CPT-61540) Her updated medication list for this problem [...] Castle MD Cardiology: O rders: Amarjit KG (CPT-84449) Wyatt Castle MD Cardiology:recommend EP study with [...] completed EKG Wyatt simon MD completed SNOMED-CT: 039760950593507 Current Medications Documented Wyatt Castle MD completed Schedule Followup Wyatt russell MD in one year completed SNOMED-CT: 32168584 Physical Exam, Performed: Pulse Exam of Foot Wyatt Castle MD completed Schedule Followup Wyatt russell MD completed EKG Wyatt simon MD completed SNOMED-CT: 654425040397666 Current Medications Documented Wyatt Castle MD completed Schedule Followup Wyatt russell MD 3 months completed EKG Wyatt simon MD completed SNOMED-CT: 585498646601621 Current Medications Documented Wyatt Castle MD completed EKG Wyatt simon MD completed SNOMED-CT: 805570051952760 Current Medications Documented Wyatt Castle MD completed
--- OUTSIDE RECORDS SUMMARY | 2025-03-07 10:26 | XMS_ITS | Clinical Summary ---
Author Organization [facility] Address [address] [place] [address] Care Team Providers Care Scrap Handler Name Role Phone Stephanie Burr MD Unavailable [phone] Damaris Fox MD Primary Care Provide r [...] PLEASE CONTACT YOUR PROVIDER FOR DOSING GUIDE. ([phone]) 024 Active famotidine (PEPCID) 20 mg tabletIndication s:Dyspepsia [...] skin every 30 (thirty) days 1 mL 024 Active Additional Information Patient not taking.Reported on 01/19/2025 nortriptyline (PAMELOR) 25 mg capsule TAKE 2 [...] needed for anxiety 60 tablet 025 Active atorvastatin (LIPITOR) 40 mg tablet TAKE 1 TABLET(40 MG) BY MOUTH DAILY 90 tablet 1 025 Active gabapentin (NEURONTIN) 600 mg tabletIndication s:Neuropathic Pain Take 600 mg by mouth 3 (three) times a day. 2017 Discontinued(D iscontinued by another clinician) topiramate (TOPAMAX) 50 mg tabletIndication s:Intractable chronic migraine without aura and without status migrainosus TAKE 1 TABLET(50 MG) BY MOUTH TWICE DAILY 180 tablet 3 024 2024 Discontinued atorvastatin (LIPITOR) 40 mg tablet Take 1 tablet (40 mg total) by mouth daily 100 tablet 1 024 2024 Discontinued ALPRAZolam (XANAX) 0.25 mg [...] 10/29/2023 Assessment & Plan (11/13/2023 3:36 PM SEARCH ADVERTISING STRATEGIST): Explained that both ears look fine Can do zyrtec d to help with symptoms of hears feeling like they are closing Can continue with the flonase No antibiotics at this time. Explained increase risk of antibiotic resistance and C diff. F/u with ENT Assessment & Plan (10/29/2023 4:07 PM SEARCH ADVERTISING STRATEGIST): Acute problem- poorly controlled with current regimen Continue augmentin 875-125 mg as directed until gone Ordered flonase 50 mcg- 2 sprays each nostril night Ordered famotidine 20 mg-take 1 tablet bid Referral placed for Dr. RoaAktiasvy-NFQ-sgvpuvs was provided contact information and encouraged to [...] the urgent care note or x-rays from [facility] [place]. Pt states she has gone back to [...] (06/02/2018): Added automatically from request for surgery [id number] Intractable chronic migraine without aura and without [...] Resolved Date AP (abdominal pain) 11/08/2020 07/12/20 21 Overview (11/08/2020): Added automatically from request for surgery [id number] Other constipation 11/08/2020 1 Overview (11/08/2020): Added automatically from request for surgery [id number] AP (abdominal pain) 05/03/2020 07/10/20 20 Overview (05/03/2020): Added automatically from request for surgery [id number] Other constipation 05/03/2020 0 Overview (05/03/2020): Added automatically from request for surgery [id number] Generalized abdominal pain 12/07/2019 0 11/15/2021 Overview (12/07/2019): Added automatically from request for surgery [id number] 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 Hordeolum externum of left lower eyelid 09/08/2017 11/06/2017 Assessment & Plan (09/08/2017 1:21 PM SEARCH ADVERTISING STRATEGIST): Erythromycin cream prescribed to apply 4 times [...] Care Team Description 02/14/2025 Orders Only [facility] Primary Care at [address] [place] [address] Damaris Fox MD Breast cancer screening by mammogram (Primary Dx) 02/09/2025 2:58 PM CDT - 02/09/2025 11:59 PM CDT Hospital Encounter [facility] [address] [place] [address] Visit for screening mammogram Discharge Disposition: Discharge to home or self care 02/09/2025 Results Follow-Up [facility] at [address] [place] [address] Damaris Fox MD SCREENING MAMMOGRAM BILATERAL W DREW 01/19/2025 10:00 AM CDT Office Visit [facility] at [address] [place] [phone] Shirlene Villanueva, CHEMIST COVID-19 virus infection (Primary Dx) 12/29/2024 Telephone [facility] [address] [place] [phone] Barbara Marmolejo MA 12/27/2024 Results Follow-Up [facility] [address] [place] [phone] Jasmyn Gerardo PA MRI Knee Left WO Contrast 12/24/2024 3:33 PM SEARCH ADVERTISING STRATEGIST - 12/24/2024 11:59 PM SEARCH ADVERTISING STRATEGIST Hospital Encounter [facility] [address] [place] [address] Internal derangement of left knee Discharge Disposition: Discharge to home or self care 12/20/2024 Telephone [facility] [address] [place] [phone] Jasmyn Gerardo PA 12/20/2024 Orders Only [facility] [address] [place] [phone] Jasmyn Gerardo PA Internal derangement of left [...] on file Legal Sex Female 11:55 PM SEARCH ADVERTISING STRATEGIST Gender Identity Not on file Sexual Orientation [...] Read Routine (OP Routine) 12/24/2024 4:19 PM SEARCH ADVERTISING STRATEGIST Internal derangement of left knee HEPATITIS C ANTIBODY Routine 07/18/2022 2:20 PM CDT Encounter for wellness examination in adult Need for hepatitis C screening test COLONOSCOPY 12/01/2020 10:00 AM SEARCH ADVERTISING STRATEGIST from Last 3 Months or Most Recently [...] CDT) Influenza A Ag, POC Negative Negative [facility] Influenza B Ag, POC Negative Negative [facility] COVID-19 Ag POC Positive(A) Presumptive Negative, Invalid [facility] Nasopharyngeal 01/19/2025 10 :15 AM CDT us Shirlene Villanueva CHEMIST POINT OF CARE TEST ORDER TOÑITO Final Result [facility] [address] [place] [address] * MRI Knee Left WO Contrast (12/24/2024 4:19 PM SEARCH ADVERTISING STRATEGIST) Anatomical Region Laterality Modality Lower Extremities Left [...] Alberto Arnold M.D. MJ: TREVIN Report ID: [id number] Reading Location: [id number] Procedure Note Mario Alberto Arnold MD - [...] Alberto Arnold M.D. MJ: TREVIN Report ID: [id number] Reading Location: [place] [address] Jasmyn VOSS IMG MRI PROCEDURES Teresa l [...] last revised on 2020. Testing performed by: , [address] [place] [address], [place]., [address] Blood 07/18/2022 2:20 PM CDT 07/18/2022 7:37 PM CDT Narrative CARISA BHAT (JARON) - 07/18/2022 8:52 PM CDT Fasting- pt will be getting done 1-2 weeks before appt @ [facility] Damaris Fox MD LAB MICROBIOL OGY - GENERAL ORDERABLES Edited Result - Final [facility] JARON) [address] [facility] Department [place] [address] * COLONOSCOPY (12/01/2020 10:00 AM SEARCH ADVERTISING STRATEGIST) Anatomical Region Laterality Modality Other Narrative Procedure Note Mikey Lentz MD - 12/01/2020 10:00 AM CST [facility] Patient Name: Pasha Abdalla Procedure Date: 12/01/2020 10:00 AM Date of : 1970 Admit Type: Outpatient Age: 50 Gender: Female Attending MD: Mikey Lentz M.D. Room: [facility] ENDOSCOPY ROOM 3 Note Status: Finalized [...] scope was passed under direct vision.The CF [id number] endoscope was introduced through the anus and advanced to the terminal ileum. The colonoscopy was performed without difficulty. The quality of the bowel preparation was evaluatedusing the BBPS ([place] Bowel Preparation Scale) withscores of: Right Colon [...] On: 12/01/2020 10:00 AM Recognized by the [place] Of [place] Society for Gastrointestinal Endoscopy for promoting quality in endoscopy Mikey Lentz MD ENDOSCOPY PROCEDURES Final Resu lt from Last 3 Months or Most Recently Relevant to Health Maintenance Additional Health Concerns Infection Onset Date Last Indicated COVID: Recovered Comment:Added based on recent COVID infection. 01/29/2025 025 Insurance [employer] CHOICE [facility] [employer] PPO [employer] ANTHE[employer] ACCESS CHOICE [employer] ACCESS [phone] [place] [address] [facility] ACCESS [facility] Advance Directives For more information, please contact: [phone] * Full Code (Latest Code Status on [...] 10:21 AM 09/30/2018 10:26 AM Care Teams Scrap Handler Relationship Specialty Start Date End Date Damaris Fox MD [address] [place] [address] [address] PCP - General Family Medicine 03/20/22 Stephanie Burr MD Consulting Physician Gastroenterology 02/24/18
--- OUTSIDE RECORDS SUMMARY | 2025-03-07 10:26 | XMS_ITS | Encounter Summary ---
Author Organization [facility] Healthcare Address [address] [place] [address] Care Team Providers Care Molecular Biology Professor Name Role Phone Amrik Jeffrey MD Primary Care Provider [phone] Stephanie Burr MD Unavailable [phone] Bernadine Rojas MA Unavailable Damaris Fox MD Primary Care Provide r Encounter Details Date Type Department Care Team (Late st Contact Info) Description 04/17/2020 Telephone [facility] [address] [place] [address] Wilfred Rai, RT Social History Tobacco Use [...] on file Legal Sex Female 11:55 PM IP/MOSAIC TECHNICIAN Gender Identity Not on file Sexual Orientation Not on file documented as of this encounter Plan of Treatment Not on file documented as of this encounter Visit Diagnoses Not on filedocumented in this encounter Additional Health Concerns Infection Onset Date Last Indicated Resolved Time COVID: Suspected 07/31/2021 07/31/2021 08/01/2021 7:00 AM CDT COVID: Suspected 09/25/2021 09/25/2021 09/25/2021 1:51 AM IP/MOSAIC TECHNICIAN COVID: Suspected 01/19/2025 01/19/2025 01/19/2025 10:15 AM CDT COVID19 01/19/2025 01/19/2025 01/29/2025 3:05 AM CDT COVID: Recovered Comment:Added based on recent COVID infection. 01/29/2025 02/09/2025 documented as of this encounter Care Teams Molecular Biology Professor Relationship Specialty Start Date End Date Amrik Jeffrey MD PCP - General 07/27/13 03/19/22 Damaris Fox MD [address] [facility] [address] [place] [address] PCP - General Family Medicine 03/20/22 Stephanie Burr MD Consulting Physician Gastroenterology 02/24/18 Bernadine Rojas MA [address] [place] [address] [address] [facility] [place] [address] ACO Care Maintenance Shop Technician 09/26/21 10/07/21 documented as of this encounter
--- OUTSIDE RECORDS SUMMARY | 2025-03-07 10:26 | XMS_ITS | Referral Summary ---
Author Organization [facility] Medical Office Building A Address [address] [place] [address] Care Team Providers Care Senior Physical Therapist Name Role Phone Stephanie Burr MD Unavailable [phone] Damaris Fox MD Primary Care Provide r Encounters Date Type Department Care Team Description 02/14/2025 Orders Only [facility] Primary Care at [address] [place] [phone] Damaris Fox MD Breast cancer screening by mammogram (Primary Dx) 02/09/2025 Results Follow-Up [facility] Primary Care at [address] [place] [phone] Damaris Fox MD SCREENING MAMMOGRAM BILATERAL W DREW 02/09/2025 2:58 PM CDT - 02/09/2025 11:59 PM CDT Hospital Encounter [facility] [address] [place] [address] Visit for screening mammogram Discharge Disposition: Discharge to home or self care 01/19/2025 10:00 AM CDT Office Visit [facility] Primary Care at [address] [place] [phone] Shirlene Villanueva, VERÓNICA COVID-19 virus infection (Primary Dx) 12/29/2024 Telephone [facility] Orthopedic and Sports Medicine [address] [place] [address] Barbara Marmolejo MA 12/27/2024 Results Follow-Up [facility] Orthopedic and Sports Medicine [address] [place] [address] Jasmyn Gerardo PA MRI Knee Left WO Contrast 12/24/2024 3:33 PM [employer]OMOBILE MECH[employer]IC [employer]OR - 12/24/2024 11:59 PM [employer]OMOBILE MECH[employer]IC [employer]OR Hospital Encounter [facility] [address] [place] [address] Internal derangement of left knee Discharge Disposition: Discharge to home or self care 12/20/2024 Telephone [facility] Orthopedics and Sports Medicine [address] [facility] [address] [place] [phone] Jasmyn Gerardo PA 12/20/2024 Orders Only [facility] Orthopedics and Sports Medicine [address] [place] [address] [address] [place] [phone] Jasmyn Gerardo PA Internal derangement of left [...] PLEASE CONTACT YOUR PROVIDER FOR DOSING GUIDE. ([phone]) Active famotidine (PEPCID) 20 mg tabletIndication s:Dyspepsia Prevention Take 1 tablet (20 mg total) by mouth 2 (two) times a day 60 tablet 11 Active phenazopyridine (PYRIDIUM) 200 mg tablet Take [...] 10/29/2023 Assessment & Plan (11/13/2023 3:36 PM AUTOMOBILE MECHANIC MOTOR): Explained that both ears look fine Can do zyrtec d to help with symptoms of hears feeling like they are closing Can continue with the flonase No antibiotics at this time. Explained increase risk of antibiotic resistance and C diff. F/u with ENT Assessment & Plan (10/29/2023 4:07 PM AUTOMOBILE MECHANIC MOTOR): Acute problem- poorly controlled with current regimen Continue augmentin 875-125 mg as directed until gone Ordered flonase 50 mcg- 2 sprays each nostril night Ordered famotidine 20 mg-take 1 tablet bid Referral placed for Dr. RoaIizrvbre-NEA-spsvpvo was provided contact information and encouraged to [...] Assessment & Plan (07/27/2024 4:16 PM CDT): Wanderempic being prescribed by cardiology for weight loss [...] the urgent care note or x-rays from [facility]. Pt states she has gone back to [...] (06/02/2018): Added automatically from request for surgery [id number] Intractable chronic migraine without aura and without [...] (11/08/2020): Added automatically from request for surgery [id number] Other constipation 11/08/2020 1 Overview (11/08/2020): Added automatically from request for surgery [id number] AP (abdominal pain) 05/03/2020 07/10/20 20 Overview (05/03/2020): Added automatically from request for surgery [id number] Other constipation 05/03/2020 0 Overview (05/03/2020): Added automatically from request for surgery [id number] Generalized abdominal pain 12/07/2019 0 11/15/2021 Overview (12/07/2019): Added automatically from request for surgery [id number] 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 BMI 35.0-35.9,adult 09/08/2017 12/21/20 18 Assessment & Plan (09/08/2017 1:21 PM AUTOMOBILE MECHANIC MOTOR): Recommended patient to continue to increase heart healthy diet with adequate fruits, vegetables, and plenty of water along with mild-moderate daily exercise as tolerated. Hordeolum externum of left lower eyelid 09/08/2017 11/06/2017 Assessment & Plan (09/08/2017 1:21 PM AUTOMOBILE MECHANIC MOTOR): Erythromycin cream prescribed to apply 4 times [...] on file Legal Sex Female 11:55 PM AUTOMOBILE MECHANIC MOTOR Gender Identity Not on file Sexual Orientation [...] Read Routine (OP Routine) 12/24/2024 4:19 PM AUTOMOBILE MECHANIC MOTOR Internal derangement of left knee HEPATITIS C ANTIBODY Routine 07/18/2022 2:20 PM CDT Encounter for wellness examination in adult Need for hepatitis C screening test COLONOSCOPY 12/01/2020 10:00 AM AUTOMOBILE MECHANIC MOTOR from Last 3 Months or Most Recently [...] CDT) Influenza A Ag, POC Negative Negative [facility] Influenza B Ag, POC Negative Negative [facility] COVID-19 Ag POC Positive(A) Presumptive Negative, Invalid [facility] Nasopharyngeal 01/19/2025 10 :15 AM CDT Shirlene Villanueva NP POINT OF CARE TEST ORDER TOÑITO Final Result [facility] PCP [facility] [address] [facility] [address] [place] [address] * MRI Knee Left WO Contrast (12/24/2024 4:19 PM AUTOMOBILE MECHANIC MOTOR) Anatomical Region Laterality Modality Lower Extremities Left [...] Alberto Arnold M.D. MJ: TREVIN Report ID: [id number] Reading Location: [id number] Procedure Note Mario Alberto Arnold MD - [...] AM - Electronically signed by Mario Alberto Renewein M.D. MJ: TREVIN Report ID: [id number] Reading Location: [id number] us Jasmyn Gerardo SHANIKA IMG MRI PROCEDURES Teresa l Result * Hepatitis C antibody (07/18/2022 2:20 PM CDT) Hep C Ab Nonreactive Nonreactive CARISA [facility]AT (COILA) Comment: Interpretive Data Nonreactive: Antibodies to HCV [...] last revised on 2020. Testing performed by: [facility], [address] [place] [address]., [facility] Blood 07/18/2022 2:20 PM CDT 07/18/2022 7:37 PM CDT Narrative CARISA BHAT (JARON) - 07/18/2022 8:52 PM CDT Fasting- pt will be getting [facility] Damaris Fox MD LAB MICROBIOL OGY - GENERAL ORDERABLES Edited Result - Final [facility]ISA BHAT (COILA) [address] [facility] Department [place] [address] * COLONOSCOPY (12/01/2020 10:00 AM AUTOMOBILE MECHANIC MOTOR) Anatomical Region Laterality Modality Other Narrative Procedure Note Mikey Lentz MD - 12/01/2020 10:00 AM CST [facility] Patient Name: Pasha Saini Procedure Date: 12/01/2020 10:00 AM Date of : 1970 Admit Type: Outpatient Age: 50 Gender: Female Attending MD: Mikey Lentz M.D. Room: [facility] ENDOSCOPY ROOM 3 Note Status: [...] The scope was passed under direct vision.The [id number] endoscope was introduced through the anus and advanced to the terminal ileum. The colonoscopy was performed without difficulty. The quality of the bowel preparation was evaluatedusing the BBPS ([place] Bowel Preparation Scale) withscores of: Right Colon [...] On: 12/01/2020 10:00 AM Recognized by the [employer] for promoting quality in endoscopy Mikey Lentz MD ENDOSCOPY PROCEDURES Final Resu lt from Last 3 Months or Most Recently Relevant to Health Maintenance Additional Health Concerns Infection Onset Date Last Indicated COVID: Recovered Comment:Added based on recent COVID infection. 01/29/2025 025 Insurance [employer] ACCESS CHOICE HEALTHCARE PPO [employer] ANTHEM ACCESS CHOICE [employer] ANTHEM ACCESS [place] [employer] [place] ANTHEM ACCESS [facility] Advance Directives For more information, please contact: [phone] * Full Code (Latest Code Status on [...] 10:21 AM 09/30/2018 10:26 AM Care Teams Senior Physical Therapist Relationship Specialty Start Date End Date Damaris Fox MD [address] [place] [address] DR [facility] [address] [place] [id number] PCP - General Family Medicine 03/20/22 Stephanie Burr MD Consulting Physician Gastroenterology 02/24/18
[2025-03-07 11:33] LABS: Add Urine Microscopic? YES; Appearance Urine Clear (Clear); Bacteria Urine None Seen /hpf; Bilirubin Urine Negative (Negative); Blood Urine 3+ (Negative); Color Urine Yellow (Yellow); Glucose Urine UA Negative (Negative); Ketones Urine Trace mg/dL (Negative); Leukocyte Esterase Ur Negative LEU/UL (Negative); Nitrate Urine Negative (Negative); Non Pathogenic Casts 0-2; Protein Urine Negative (Negative); Specific Grav Ur 1.008 (1.001-1.035); Squamous Epithelial Cell Urine None Seen /hpf (Few); Urobilinogen Urine 0.2 mg/dL (<2.0); WBC Urine 0-5 /hpf (0-3); pH Urine 7.5 (5.0-9.0)
[2025-03-07 11:48] VITALS: BP 142/105; PULSE 98; RESP 24; O2SAT 100
[2025-03-07] MEDS: ACETAMINOPHEN 325 MG TABLET 650 MG PO ×2 (12:35→17:29)
[2025-03-07] MEDS: TAMSULOSIN HCL 0.4 MG CAPSULE PO (12:35)
[2025-03-07 12:53] VITALS: BP 124/84; PULSE 87; RESP 17; O2SAT 100
--- NOTE | 2025-03-07 13:22 | PC.NURSE ---
Spoke with Tayla Murrieta RN due to issues with calling the floor and was informed that the rom was not yet ready for the patient
--- NOTE | 2025-03-07 13:24 | P.HP_ITS ---
H&P: HPI History of Present Illness Date/Time: 03/07/25 13:24 Chief Complaint: Left flank pain Narrative: 55-year-old female past medical history of anxiety and depression presents the hospital with left flank pain. On bedside exam patient is extremely tearful stating that the pain meds are not working as she has flank pain anterior abdomen. Patient denies fever chills, or vomiting. She does say that she is nauseated from the pain and had very little oral intake lately. New in the ED the patient's lab work shows no leukocytosis, UA negative trace ketones and 3+ blood, with 11-20 rbc's, noninfective. CT abdomen pelvis show Bilateral nephrolithiasis with 2-3 mm stone at the proximal left ureter with mild left hydronephrosis, Small loop of nonobstructed small bowel extends into a small widemouthed umbilical hernia, and small pericardial effusion. was consulted. Review of Systems Review of Systems: 12 systems were reviewed and are negativ e except for as per HPI. PMF Past Medical History Medical History (Updated 03/07/25 @ 14:01 by Jazmín Jesus, MISAEL) Rib fractures Depression Anxiety Vaginal delivery x 2 Surgical History Surgical History History of endometrial ablation History of cholecystectomy History of bilateral tubal ligation History of partial pancreatectomy Family History Family History Mother Hypertension Father Family history of elevated blood lipids Family history of coronary artery disease Grandparent Family history of malignant neoplasm of male breast, Onset Age: 58 Family history of coronary artery disease, Onset Age: 55 Social History Social History Smoking status: Never smoker Second hand tobacco smoke exposure: No Alcohol intake: never Substance use: never Do You Feel Safe in your Home?: Yes Lack of Transportation: No Lack of Food: Never True Current Housing: I Have Housing Concerned About Future Housing: No Difficulty Paying Gas/Electric Bills: No Difficulty Paying for Meds: No Currently Unemployed: No Education: Associate Degree Difficulty w/ Childcare or Family Care: No Living arrangements: with family Gender identity (if verbalized by the patient): Female Sexual Orientation (if Verbalized by the Patient): Straight or Heterosexual Spiritual care concerns: No Meds Home Medications and Allergies Home Medications ?Medication ?Instructions ?Recorded ?Confirmed ?Type alprazolam 0.25 mg tablet 0.25 mg PO TID PRN anxiety 07/24/20 03/07/25 History nortriptyline 25 mg capsule 50 mg PO HS 05/11/22 03/07/25 History sertraline 100 mg tablet 100 mg PO DAILY 05/11/22 03/07/25 History topiramate 50 mg tablet 50 mg PO BID 05/11/22 03/07/25 History atorvastatin 40 mg tablet 40 mg PO DAILY 10/22/23 03/07/25 History cyanocobalamin (vitamin B-12) 100 100 mcg .every 3 days 11/08/23 History mcg/mL injection syringe famotidine 20 mg tablet 20 mg PO BID 11/08/23 03/07/25 History cetirizine 5 mg-pseudoephedrine ER 1 tablet PO BID 03/07/25 03/07/25 History 120 mg tablet,extended release,12hr (All Day Allergy-D) cholecalciferol (vitamin D3) 10 400 unit PO DAILY 03/07/25 03/07/25 History mcg (400 unit) capsule dihydroergotamine (Trudhesa) 1 spray intranasal DAILY PRN 03/07/25 03/07/25 History congestion erenumab-aooe 140 mg/mL 140 mg subcut .every 30 days 03/07/25 03/07/25 History subcutaneous auto-injector (Aimovig Autoinjector) esomeprazole magnesium 40 mg 40 mg PO DAILY 03/07/25 03/07/25 History granules delayed release for susp insulin syringe-needle U-100 1 mL 03/07/25 03/07/25 History 31 gauge x 5/16 (Sure Comfort Insulin Syringe) meclizine 12.5 mg tablet 12.5 mg PO TID PRN dizziness 03/07/25 03/07/25 History ondansetron 4 mg disintegrating 4 mg PO Q6H PRN nausea and vomiting 03/07/25 03/07/25 History tablet phenazopyridine 200 mg tablet 200 mg PO TID PRN pain 03/07/25 03/07/25 History semaglutide 0.25 mg or 0.5 mg (2 0.25 mg subcut WEEKLY 03/07/25 03/07/25 History mg/3 mL) subcutaneous pen injector tramadol 50 mg tablet 50 mg PO Q6H PRN pain 03/07/25 03/07/25 History Allergies Allergy/AdvReac Type Severity Reaction Status Date / Time Sulfa (Sulfonamide Allergy Unknown unknown Verified 11/08/23 08:56 Antibiotics) Vital Signs Vital Signs - 24 hr 03/07/25 08:30 03/07/25 10:06 03/07/25 11:48 Temperature 97.6 F Pulse Rate 105 H 94 98 Respiratory Rate 26 H 14 24 H Blood Pressure 147/88 H 133/89 142/105 H Pulse Oximetry 100 100 Oxygen Delivery Room Air 03/07/25 12:53 Temperature Pulse Rate 87 Respiratory Rate 17 Blood Pressure 124/84 Pulse Oximetry 100 Oxygen Delivery Exam Narrative: General: Tearful HEENT: normocephalic, atraumatic. Mucous membranes moist. EOMI, PERRLA, bilateral sclera anicteric, no conjunctival injection. Neck supple without JVD, lymphadenopathy, or bruit. Respiratory: clear to ascultation bilaterally. No rales/rhonic/wheezes. Cardiovascular: Regular rate and rhythm, normal S1-S2 upon ascultation. No murmurs, rubs, or clicks. PMI is nondisplaced, capillary refill less than 3 second. Abdomen: Soft, round, no pulsatile masses, nondistended and nontender. No rebound, no guarding. No CVA tenderness, no hepatosplenomegaly. Bowel sounds present to all four quadrants. No high pitch or tinkling sounds, resonant to percussion. Extremities: No cyanosis, clubbing, or edema present. Pulses are palpable 2/2. Active ROM to all four extremities. Neuro: Alert and orientated x 4. PERRLA. Cranial nerves 2-12 intact without focal deficit. Skin: Warm, dry, and intact, without rash, erythema, or lesion. Psych: pleasant, cooperative, normal speech, normal affect, no hallucinations, no dysarthia H&P: Results Labs Labs: Short CBC 03/07/25 Range/Units 08:42 WBC 6.1 (4.5-10.0) K/mm3 Hgb 13.6 (12.0-15.0) g/dL Hct 42.6 (37.0-47.0) % Plt Count 383 H (150-375) k/mm3 BMP 03/07/25 08:42 Sodium 139 Potassium 4.0 Chloride 106 Carbon Dioxide 22 BUN 16 Creatinine 0.65 L Glucose 122 H Calcium 9.4 Liver Function 03/07/25 Range/Units 08:42 Total Bilirubin 0.5 (0.2-1.3) mg/dL AST 31 (14-36) U/L ALT 30 (6-35) U/L Alkaline Phosphatase 98 (38-126) U/L Albumin 4.9 (3.5-5.1) g/dL Urine 03/07/25 Range/Units 11:09 Urine Color Yellow (Yellow) Urine Appearance Clear (Clear) Urine pH 7.5 (5.0-9.0) Ur Specific [place] 1.008 (1.001-1.035) Urine Protein Negative (Negative) mg/dL Urine Glucose (UA) Negative (Negative) mg/dL Assessment and Plan Assessment and plan (1) Kidney stone: Code(s): N20.0 - Calculus of kidney Status: Acute Assessment and Plan: Urology consultation Strain all urine IV fluids for hydration Flomax (2) Acute pain: Code(s): R52 - Pain, unspecified Status: Acute Assessment and Plan: Scheduled Tylenol and Toradol Dilaudid p.r.n. 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 (3) Hydronephrosis: Code(s): N13.30 - Unspecified hydronephrosis Status: Acute Assessment and Plan: Urology consulted pending recommendations Plan for stent placement tomorrow (4) Pericardial effusion: Code(s): I31.39 - Other pericardial effusion (noninflammatory) Status: Acute Assessment and Plan: Echocardiogram pending (5) Anxiety: Code(s): F41.9 - Anxiety disorder, unspecified Status: Acute Assessment and Plan: Restarted home meds (6) Hyperlipidemia: Code(s): E78.5 - Hyperlipidemia, unspecified Status: Acute Assessment and Plan: Continue with statin Quality VTE Prophylaxis VTE prophylaxis: mechanical ordered If No VTE Prophylaxis Answer both mechanical and pharmacologic: Reason no pharmacologic proph: medical contraindication Hospitalist MIPS Advance Care Plan I have confirmed that the patient's Advanced Care Plan is present, code status is documented, or surrogate decision maker is listed in patient medical record.: Yes Medication Reconciliation I have utilized all available resources to obtain, update and review the patients current medications (includes all prescriptions, OTC, herbals, cannabis, and nutritional supplements).: Yes
--- NOTE | 2025-03-07 13:41 | PC.NURSE ---
Report given to Luz Avila RN 13:40
[2025-03-07] MEDS: SODIUM CHLORIDE 0.9% IV 1,000 ML 125 ML IV CONT ×2 (14:04→20:42)
--- NOTE | 2025-03-07 14:24 | WPDURCON ---
Assessment and Plan Assessment and plan (1) Ureterolithiasis: Code(s): N20.1 - Calculus of ureter Status: Acute (2) Hydronephrosis: Code(s): N13.30 - Unspecified hydronephrosis Status: Acute (3) Acute pain: Code(s): R52 - Pain, unspecified Status: Acute Plan - 2-3 mm left proximal ureteral stone with mild left hydronephrosis - Other punctate nonobstructing bilateral nephrolithiasis - Remote history of pansensitive E. coli UTI (11/08/2023) - UA does not appear grossly infected, afebrile, no leukocytosis Plan: - Continue daily tamsulosin and PRN analgesics for trial of passage - Encourage oral fluid intake (80-100 ounces/day) - Strain all urine - Ambulate as tolerated - NPO after midnight for possible cystoscopy + left ureteral stent placement tomorrow as an add-on case with Dr. Wilson if pain remains uncontrolled overnight (OR team notified) - No plan for inpatient surgical intervention today, OK to resume diet - Counseled on stent placement procedure and potential need for future outpatient stone treatment Urology Consult Note HPI Date Seen: 03/07/25 Requesting Physician: Marco Parada MD Primary Care Provider: UNKNOWN,DOCTOR Consult Narrative Reason for consult: LEFT URETERAL STONE, MILD HYDRONEPHROSIS, POOR PAIN CONTROL Narrative: Teresa Saini presents with left flank pain that began early this morning (before 5:30 AM) and woke her from sleep. The pain is located in her back and wraps around to her lower abdomen. She reports associated nausea with clamminess but denies vomiting or fever. She has a history of spontaneously passing a kidney stone in 2018 without requiring urologic intervention. CT abdomen/pelvis shows a 2-3 mm left proximal ureteral stone with mild left hydronephrosis. She was admitted due to poor pain control despite receiving IV opioid analgesics in the ED. -PERTINENT LABS: 03/07/2025 - WBC 6.1, HGB 13.6, Cr 0.65 03/07/2025 - UA: 3+ blood, 11-20 RBCs, 0-5 WBCs -PERTINENT IMAGIN03/07/2025 CT abdomen/pelvis (without contrast) - Bilateral nephrolithiasis with 2-3 mm stone at proximal left ureter with mild left hydronephrosis. Small loop of nonobstructed small bowel extends into small widemouthed umbilical hernia. Additional small fat-containing supraumbilical ventral hernia. Very small pericardial effusion. 03/07/2025 KUB - No acute abdominal findings. No obvious stones. Review of Systems Constitutional: Constitutional: Denies chills Cardiovascular: Cardiovascular: Denies chest pain Respiratory: Respiratory: Denies dyspnea Gastrointestinal: Gastrointestinal: Reports nausea Genitourinary: Genitourinary: Denies hematuria REPLACED BY [facility] Past Medical History Medical History (Updated 03/07/25 @ 14:01 by Jazmín Jesus, FILM LIBRARIAN) Rib fractures Depression Anxiety Vaginal delivery x 2 Surgical History Surgical History History of endometrial ablation History of cholecystectomy History of bilateral tubal ligation History of partial pancreatectomy Family History Family History Mother Hypertension Father Family history of elevated blood lipids Family history of coronary artery disease Grandparent Family history of malignant neoplasm of male breast, Onset Age: 58 Family history of coronary artery disease, Onset Age: 55 Social History Social History Smoking status: Never smoker Second hand tobacco smoke exposure: No Alcohol intake: never Substance use: never Do You Feel Safe in your Home?: Yes Lack of Transportation: No Lack of Food: Never True Current Housing: I Have Housing Concerned About Future Housing: No Difficulty Paying Gas/Electric Bills: No Difficulty Paying for Meds: No Currently Unemployed: No Education: Associate Degree Difficulty w/ Childcare or Family Care: No Living arrangements: with family Gender identity (if verbalized by the patient): Female Sexual Orientation (if Verbalized by the Patient): Straight or Heterosexual Spiritual care concerns: No Meds Home Medications and Allergies Home Medications ?Medication ?Instructions ?Recorded ?Confirmed ?Type alprazolam 0.25 mg tablet 0.25 mg PO TID PRN anxiety 07/24/20 03/07/25 History nortriptyline 25 mg capsule 50 mg PO HS 05/11/22 03/07/25 History sertraline 100 mg tablet 100 mg PO DAILY 05/11/22 03/07/25 History topiramate 50 mg tablet 50 mg PO BID 05/11/22 03/07/25 History atorvastatin 40 mg tablet 40 mg PO DAILY 10/22/23 03/07/25 History cyanocobalamin (vitamin B-12) 100 100 mcg .every 3 days 11/08/23 History mcg/mL injection syringe famotidine 20 mg tablet 20 mg PO BID 11/08/23 03/07/25 History cetirizine 5 mg-pseudoephedrine ER 1 tablet PO BID 03/07/25 03/07/25 History 120 mg tablet,extended release,12hr (All Day Allergy-D) cholecalciferol (vitamin D3) 10 400 unit PO DAILY 03/07/25 03/07/25 History mcg (400 unit) capsule dihydroergotamine (Trudhesa) 1 spray intranasal DAILY PRN 03/07/25 03/07/25 History congestion erenumab-aooe 140 mg/mL 140 mg subcut .every 30 days 03/07/25 03/07/25 History subcutaneous auto-injector (Aimovig Autoinjector) esomeprazole magnesium 40 mg 40 mg PO DAILY 03/07/25 03/07/25 History granules delayed release for susp insulin syringe-needle U-100 1 mL 03/07/25 03/07/25 History 31 gauge x 5/16 (Sure Comfort Insulin Syringe) meclizine 12.5 mg tablet 12.5 mg PO TID PRN dizziness 03/07/25 03/07/25 History ondansetron 4 mg disintegrating 4 mg PO Q6H PRN nausea and vomiting 03/07/25 03/07/25 History tablet phenazopyridine 200 mg tablet 200 mg PO TID PRN pain 03/07/25 03/07/25 History semaglutide 0.25 mg or 0.5 mg (2 0.25 mg subcut WEEKLY 03/07/25 03/07/25 History mg/3 mL) subcutaneous pen injector tramadol 50 mg tablet 50 mg PO Q6H PRN pain 03/07/25 03/07/25 History Allergies Allergy/AdvReac Type Severity Reaction Status Date / Time Sulfa (Sulfonamide Allergy Unknown unknown Verified 11/08/23 08:56 Antibiotics) Vital Signs Vital Signs - 24 hr 03/07/25 08:30 03/07/25 10:06 03/07/25 11:48 Temperature 97.6 F Pulse Rate 105 H 94 98 Respiratory Rate 26 H 14 24 H Blood Pressure 147/88 H 133/89 142/105 H Pulse Oximetry 100 100 Oxygen Delivery Room Air 03/07/25 12:53 Temperature Pulse Rate 87 Respiratory Rate 17 Blood Pressure 124/84 Pulse Oximetry 100 Oxygen Delivery Exam Const: General: comfortable and no acute distress Resp: Effort & Inspection: normal respiratory effort GI: Other: MILD LLQ TENDERNESS : Other: MILD LEFT CVA TENDERNESS Skin: General skin exam: normal color Neuro: Speech: normal speech Psych: Speech and movement: Normal speech and movement present Results Labs 03/07/25 08:42 03/07/25 08:42 Labs: Short CBC 03/07/25 Range/Units 08:42 WBC 6.1 (4.5-10.0) K/mm3 Hgb 13.6 (12.0-15.0) g/dL Hct 42.6 (37.0-47.0) % Plt Count 383 H (150-375) k/mm3 BMP 03/07/25 08:42 Sodium 139 Potassium 4.0 Chloride 106 Carbon Dioxide 22 BUN 16 Creatinine 0.65 L Glucose 122 H Calcium 9.4 Liver Function 03/07/25 Range/Units 08:42 Total Bilirubin 0.5 (0.2-1.3) mg/dL AST 31 (14-36) U/L ALT 30 (6-35) U/L Alkaline Phosphatase 98 (38-126) U/L Albumin 4.9 (3.5-5.1) g/dL Urine 03/07/25 Range/Units 11:09 Urine Color Yellow (Yellow) Urine Appearance Clear (Clear) Urine pH 7.5 (5.0-9.0) Ur Specific [place] 1.008 (1.001-1.035) Urine Protein Negative (Negative) mg/dL Urine Glucose (UA) Negative (Negative) mg/dL
[2025-03-07 14:33] VITALS: BMI 28.5
--- NOTE | 2025-03-07 14:37 | ADMGEN ---
This patient, Teresa Saini, was admitted to 3 [facility] Surg Room 316-01. Patient/family oriented to hospital policies and general routines including ID bracelet, bed and alarms, visiting hours, pain management, procedures, bathroom and other care routines, personal items, smoking policy, room service/diet, and visiting hours. Information on how to activate the Rapid Response Team has been discussed. Patient/Family are encouraged to report perceived risks to care and to ask questions if they do not understand what they are told or what they should do.
[2025-03-07] MEDS: PHENAZOPYRIDINE HCL 100 MG TABLET 200 MG PO (20:42)
[2025-03-07] MEDS: NORTRIPTYLINE HCL 25 MG CAPSULE 50 MG PO (20:42)
[2025-03-07 21:08] VITALS: BP 121/61; PULSE 104; RESP 16; TEMP 35.8; O2SAT 99
[2025-03-07 22:23] VITALS: RESP 18; O2SAT 98
[2025-03-07] MEDS: MORPHINE SULFATE PCA (*CRX) 30 MG/30 ML SYR IV CONT (22:23)
[2025-03-08] VITALS (9 sets, daily range): BP systolic 95–119; BP diastolic 55–76; PULSE 72–107; RESP 13–17; TEMP 35.8–36.5; O2SAT 94–99
--- NOTE | 2025-03-08 | ECHO_ITS ---
Patient Info Name: Teresa Saini Age: 55 years : 1970 Gender: Female Ht: 58 in Wt: 138 lbs BSA: 1.62 m2 HR: 77 bpm BP: 109 / 61 mmHg Heart Rhythm: Sinus Rhythm Technical Quality: Fair Exam Date: 03/08/2025 8:57 AM Patient Status: O Admit Date: 03/07/2025 Exam Type: CA echo doppler color flow Complete two-dimensional, color flow and Doppler transthoracic echocardiogram is performed. Staff Referring Physician: Jeremiah Wilson MD [employer] Installer: [place] Attending Provider: Di Streeter Summary 1. Left ventricular chamber dimension is normal. 2. Left ventricular systolic function is normal, estimated at 60-65. 3. Right ventricular systolic function is normal. 4. There is trivial pericardial effusion. 5. No significant valvular disease. Left Ventricle Left ventricular chamber dimension is normal. Left ventricular systolic function is normal, estimated at 60-65. There is no increased left ventricular wall thickness. Right Ventricle Right ventricular chamber dimension is normal. Right ventricular systolic function is normal. Left Atria Left atrial chamber dimension is normal. Right Atria Right atrial chamber dimension is normal. Atrial Septum Intact interatrial septum visualized by color flow imaging. Aortic Valve The aortic valve is probable trileaflet. There is no aortic valve stenosis. There is no aortic valve regurgitation. Pulmonic Valve The pulmonic valve is not well visualized. There is no pulmonic regurgitation. Mitral Valve There is trace mitral valve regurgitation. Tricuspid Valve There is trace tricuspid valve regurgitation. Pericardium/Pleural The pericardium appears epicardial fat pad. There is trivial pericardial effusion. Inferior Vena Cava Normal inferior vena cava with >50% collapse upon inspiration consistent with normal right atrial pressure, 3 mmHg. Aorta The aortic root size at the sinus of Valsalva is normal. Left Ventricular Outflow Tract Name Value Normal LVOT 2D LVOT Diameter 2.0 cm LVOT Doppler LVOT Peak Velocity 93 cm/s LVOT Peak Gradient 3 mmHg LVOT Mean Gradient 2 mmHg LVOT VTI 20 cm LVOT VTI/AV VTI Ratio 0.9 LVOT Stroke Volume 60 ml LVOT CO 10.9 l/min LVOT CI 6.7 l/min/m2 Pulmonic Valve Name Value Normal RVOT Doppler RVOT Peak Velocity 41 cm/s RVOT Peak Gradient 1 mmHg PV Doppler PV Peak Velocity 90 cm/s PV Peak Gradient 3 mmHg Mitral Valve Name Value Normal MV Diastolic Function MV E Peak Velocity 79 cm/s MV A Peak Velocity 62 cm/s MV E/A 1.3 MV Decel Time (PW) 124 ms MV Annular TDI MV E/e' (Septal) 6.3 MV E/e' (Lateral) 5.5 MV E/e' (Average) 5.9 Tricuspid Valve Name Value Normal TV Regurgitation Doppler TR Peak Velocity 255 cm/s TR Peak Gradient 26 mmHg Estimated PAP/RSVP RA Pressure 3 mmHg <=5 PA Systolic Pressure 29 mmHg <36 RV Systolic Pressure 29 mmHg <36 Aortic Valve Name Value Normal AV Doppler AV Peak Velocity 113 cm/s AV Peak Gradient 5 mmHg AV Mean Gradient 2 mmHg AV VTI 23 cm AV Area (Cont Eq VTI) 2.6 cm2 >=3.0 AV Area (Cont Eq Nico) 2.5 cm2 AV DI (Nico) 0.83 AV Regurgitation 2D LVOT Area 3.0 cm2 Ventricles Name Value Normal LV Dimensions 2D/MM IVS Diastolic Thickness (2D) 0.8 cm 0.6-1.0 LVID Diastole (2D) 4.0 cm 3.8-5.2 LVIW Diastolic Thickness (2D) 0.8 cm 0.6-0.9 LVID Systole (2D) 2.7 cm 2.2-3.5 LVOT Diameter 2.0 cm LV Mass (2D Cubed) 98.38 g 67.00-162.00 LV Mass Index (2D Cubed) 61 g/m2 43-95 Relative Wall Thickness (2D) 0.42 <=0.42 LV Fractional Shortening/Ejection Fraction 2D/MM LV Fractional Shortening (2D) 33 % 27-45 LV EF (2D Teichholz) 62 % LV Diastolic Volume (4C MOD) 106 ml LV EF (4C MOD) 75 % LV Diastolic Volume (2C MOD) 97 ml LV EF (2C MOD) 67 % LV Diastolic Volume (BP MOD) 102 ml 46-106 LV Diastolic Volume Index (BP MOD) 63 ml/m2 29-61 LV Systolic Volume (BP MOD) 30 ml 14-42 LV Systolic Volume Index (BP MOD) 19 ml/m2 8-24 LV EF (BP MOD) 70 % 54-74 LV Diastolic Length (4C) 7.8 cm LV Systolic Length (4C) 5.6 cm LV Stroke Volume (4C MOD) 80 ml Atria Name Value Normal LA Dimensions LA Volume (4C A-L) 45 ml LA Volume (BP A-L) 43 ml RA Dimensions RA Systolic Major Horace Length (4C) 4.7 cm 2.2-2.8 RA Area (4C) 13.5 cm2 <=18.0 Report Signatures
[2025-03-08] MEDS: SODIUM CHLORIDE 0.9% IV 1,000 ML 125 ML IV CONT ×2 (06:06→21:10)
[2025-03-08] MEDS: ACETAMINOPHEN 325 MG TABLET 650 MG PO ×3 (06:06→17:35)
--- NOTE | 2025-03-08 07:22 | P.PNIM_ITS ---
Progress Note: A&P Assessment and Plan (1) Kidney stone: Code(s): N20.0 - Calculus of kidney Status: Acute Assessment and Plan: consultation Strain all urine IV fluids for hydration Flomax Per 03/07: Plan: - Continue daily tamsulosin and PRN analgesics for trial of passage - Encourage oral fluid intake (80-100 ounces/day) - Strain all urine - Ambulate as tolerated - NPO after midnight for possible cystoscopy + left ureteral stent placement tomorrow as an add-on case with Dr. Wilson if pain remains uncontrolled overnight (OR team notified) - No plan for inpatient surgical intervention today, OK to resume diet - Counseled on stent placement procedure and potential need for future outpatient stone treatment 03/08: Pending cysto with stent placement today (2) Acute pain: Code(s): R52 - Pain, unspecified Status: Acute Assessment and Plan: Scheduled Tylenol, Toradol D/C due to potential procedure today Dilaudid p.r.n. 2-3 hours Patient states that the Dilaudid is not helping alone, [employer] morphine ordered. (3) Hydronephrosis: Code(s): N13.30 - Unspecified hydronephrosis Status: Acute Assessment and Plan: Urology consulted pending continued recommendations Plan for stent placement today (4) Pericardial effusion: Code(s): I31.39 - Other pericardial effusion (noninflammatory) Status: Acute Assessment and Plan: Echocardiogram pending (5) Anxiety: Code(s): F41.9 - Anxiety disorder, unspecified Status: Acute Assessment and Plan: Restarted home meds Has been stable (6) Hyperlipidemia: Code(s): E78.5 - Hyperlipidemia, unspecified Status: Acute Assessment and Plan: Continue with statin Subjective Date/time seen: 03/08/25 1000 Interval history: Pt is a 55 y/o female with a PMHx of HLD, depression, anxiety, hydronephritis, kidney stones, and ureterolithiasis who reports to the ED on 03/07 c/o severe L flank pain that started earlier that AM. Pt reports that the pain starts in her L flank and wraps around to her LLQ. Reports nausea and diaphoresis. denies V/D or fever. Hx of kidney stone last in 2018. New in the ED the patient's lab work shows no leukocytosis, UA negative trace ketones and 3+ blood, with 11-20 rbc's, noninfective. CT abdomen pelvis show Bilateral nephrolithiasis with 2-3 mm stone at the proximal left ureter with mild left hydronephrosis, Small loop of nonobstructed small bowel extends into a small widemouthed umbilical hernia, and small pericardial effusion. was consulted. team planning for potential cysto today with stent placement if pain not managed. Pt resting in bed semi-comfortably upon examination today. Pt still reporting mild pain, but, the morphine [employer] has been helping. Denies nausea. Updated pt on the plan for cysto and potential stent placement, she reports uro came in last night and updated her on the plan. Also updated her that we are pending echo results. VSS. WIll await studies and follow. Review of Systems Review of Systems: 12 systems were reviewed and are negativ e except for as per HPI. Exam Narrative: Patient lying semi-comfortably in bed, no acute distress Const: General: no acute distress and uncomfortable HENMT: Face/Nose/Sinus: Normal nares present Other: tacky mucus membranes Eyes: General: appearance normal, both eyes and all related structures Sclera: sclerae normal Neck: Neck: supple Resp: Effort & Inspection: normal respiratory effort Auscultation: clear to auscultation bilaterally Cardio: Rate: regular rate Rhythm: regular rhythm GI: Inspection: non-distended Auscultation: abnormal bowel sounds (hypo throughout) : Other: CVA TTP bilaterally Skin: General skin exam: normal color and no rashes or lesions noted Wounds: no wounds Neuro: Speech: normal speech Motor exam (neuro): Normal motor muscle tone present throughout Sensory Exam: normal sensation Extrem: General: normal to inspection Psych: Mental Status: mental status grossly normal Affect: normal affect Objective Data Vital Signs Vital Signs: Vital Signs - 24 hr 03/07/25 08:30 03/07/25 10:06 03/07/25 11:48 Temperature 97.6 F Pulse Rate 105 H 94 98 Respiratory Rate 26 H 14 24 H Blood Pressure 147/88 H 133/89 142/105 H Pulse Oximetry 100 100 Oxygen Delivery Room Air 03/07/25 12:53 03/07/25 14:00 03/07/25 21:08 Temperature 96.4 F L Pulse Rate 87 104 H Respiratory Rate 17 16 Blood Pressure 124/84 121/61 Pulse Oximetry 100 99 Oxygen Delivery Room Air 03/07/25 22:23 03/08/25 05:52 Temperature 96.5 F L Pulse Rate 72 Respiratory Rate 18 14 Blood Pressure 109/61 Pulse Oximetry 98 99 Oxygen Delivery Intake/Output Intake/Output: Intake & Output 03/05/25 03/06/25 03/07/25 03/08/25 23:59 23:59 23:59 23:59 Intake Total 1829.2 1000 Output Total 200 Balance 1629.2 1000 Meds/Results Medications: Active Medications Generic Name Dose Route Start Last Admin Trade Name Freq PRN Reason Stop Dose Admin Acetaminophen 650 mg 03/07/25 12:30 03/08/25 06:06 Acetaminophen 325 Mg Tablet PO 650 mg Q6HR OFE Administration Alprazolam 0.25 mg 03/07/25 19:01 Alprazolam (*Crx) 0.25 Mg Tablet PO TID PRN anxiety Atorvastatin Calcium 40 mg 03/08/25 09:00 Atorvastatin 40 Mg Tablet PO DAILY OFE Famotidine 20 mg 03/08/25 09:00 Famotidine 20 Mg Tablet PO Q12HR OFE Hydromorphone HCl 0.5 mg 03/07/25 12:27 03/07/25 19:29 Hydromorphone Hcl Inj (*Crx) 2 Mg/Ml Vial IV PUSH 0.5 mg Q3HR PRN Administration pain Sodium Chloride 1,000 mls @ 125 mls/hr 03/07/25 12:30 03/08/25 06:06 Normal Saline Iv IV CONT 125 mls/hr .Q8H OFE Administration Sodium Chloride 1,000 mls @ 125 mls/hr 03/07/25 12:30 03/08/25 06:07 Normal Saline Iv IV CONT Not Given .Q8H OFE Morphine Sulfate 30 mg in 30 mls @ 0 mls/hr 03/07/25 20:52 03/07/25 22:23 Morphine Sulfate [employer] Sales Associate IV CONT 0.5 mg/hr PRN PRN 0.5 mls/hr [employer] Management Administration Protocol 0 MG/HR Ketorolac Tromethamine 30 mg 03/08/25 00:00 03/08/25 05:27 Ketorolac 15 Mg/Ml Vial (*Bkc) IV PUSH Not Given Q6HR OFE Meclizine HCl 12.5 mg 03/07/25 20:51 Meclizine Hcl 12.5 Mg Tablet PO TID PRN dizziness Nortriptyline HCl 50 mg 03/07/25 21:00 03/07/25 20:42 Nortriptyline Hcl 25 Mg Capsule PO 50 mg HS OFE Administration Perflutren Lipid Microsphere 0 ml 03/07/25 21:46 Perflutren Lipid Microspheres 1.5 Ml Vial Diluted To 10 Ml Total Volume IV PUSH 03/10/25 21:46 ONCE PRN adequate visualization Protocol Phenazopyridine HCl 200 mg 03/07/25 19:01 03/07/25 20:42 Phenazopyridine Hcl 100 Mg Tablet PO 200 mg TID PRN Administration pain Sertraline HCl 100 mg 03/08/25 09:00 Sertraline Hcl 50 Mg Tablet PO DAILY [facility] Tamsulosin HCl 0.4 mg 03/08/25 09:00 Tamsulosin Hcl 0.4 Mg Capsule PO 03/22/25 08:59 QAM [facility] Topiramate 50 mg 03/08/25 09:00 Topiramate 25 Mg Tablet PO BID [facility] Radiology Results: ITS Impressions Abdomen/Pelvis CT 03/07/25 09:54 IMPRESSION: 1. Bilateral nephrolithiasis with 2-3 mm stone at the proximal left ureter with mild left hydronephrosis. 2. Small loop of nonobstructed small bowel extends into a small widemouthed umbilical hernia. Additional small fat-containing supraumbilical ventral hernia. 3. Very small pericardial effusion. Abdomen X-Ray 03/07/25 10:58 IMPRESSION: NO ACUTE ABDOMINAL FINDINGS. Labs Labs: Laboratory Results - last 24 hr 03/07/25 03/07/25 08:42 11:09 WBC 6.1 RBC 4.71 Hgb 13.6 Hct 42.6 MCV 90.4 MCH 28.9 MCHC 31.9 L RDW 12.8 Plt Count 383 H MPV 9.3 Immature Gran % (Auto) 0.3 Neut % (Auto) 67.0 Lymph % (Auto) 27.4 [place] % (Auto) 4.1 Eos % (Auto) 0.2 Baso % (Auto) 1.0 Lymph # (Auto) 1.68 [place] # (Auto) 0.3 Eos # (Auto) 0.0 Baso # (Auto) 0.1 Abs Immat Gran (auto) 0.02 Absolute Neuts (auto) 4.1 Absolute Nucleated RBC 0.000 Nucleated RBC % 0.0 Sodium 139 Potassium 4.0 Chloride 106 Carbon Dioxide 22 Anion Gap 11 BUN 16 Creatinine 0.65 L Estim Creat Clear Calc Not Reportable Estimated GFR > 60 Glucose 122 H Calcium 9.4 Total Bilirubin 0.5 AST 31 ALT 30 Alkaline Phosphatase 98 Total Protein 8.0 Albumin 4.9 Lipase 181 Urine Color Yellow Urine Appearance Clear Urine pH 7.5 Ur Specific [place] 1.008 Urine Protein Negative Urine Glucose (UA) Negative Urine Ketones Trace H Ur Blood (Man) 3+ H Urine Nitrate Negative Urine Bilirubin Negative Urine Urobilinogen 0.2 Leukocyte Esterase Rfl Negative Urine RBC 11-20 H Urine WBC 0-5 Ur Squamous Epith Cells None seen Urine Bacteria None seen Urine Casts 0-2 Quality VTE Prophylaxis VTE prophylaxis: mechanical ordered
[2025-03-08] MEDS: TOPIRAMATE 25 MG TABLET 50 MG PO ×2 (08:13→17:35)
[2025-03-08] MEDS: ATORVASTATIN 40 MG TABLET PO (08:14)
[2025-03-08] MEDS: TAMSULOSIN HCL 0.4 MG CAPSULE PO (08:14)
[2025-03-08] MEDS: FAMOTIDINE 20 MG TABLET PO ×2 (08:14→21:10)
[2025-03-08] MEDS: SERTRALINE HCL 50 MG TABLET 100 MG PO (08:14)
[2025-03-08] MEDS: HYDROmorphone HCL INJ (*CRX) 2 MG/ML VIAL 0.5 MG IV PUSH (08:20)
[2025-03-08 13:54] LABS: Beta HCG Quantitative < 2.39 mIU/ML
--- NOTE | 2025-03-08 14:05 | WPDHPUPDATE1 ---
History and Physical Update Update Date/Time: 03/08/25 14:05 History and Physical has been reviewed, including an updated exam of the patient. There are NO changes in the patient's condition. Risks, benefits, and alternatives have been discussed and questions answered. Patient agrees to proceed with procedure. Proceed with cystoscopy, left retrograde, left ureteroscopy with stone extraction, possible stent possible laser
[2025-03-08] MEDS: LACTATED RINGERS 1,000 ML 30 ML IV CONT (15:00)
--- NOTE | 2025-03-08 15:08 | P.PNAN_ITS ---
Anes - Initial Pre Proc Eval Procedure: Operation Date: 03/08/25 15:30 Proposed Procedures p Cystoscopy, Left Ureteroscopy, Possible Left Retrograde Pyelogram, Possible Holmium Laser Lithotripsy, Possible Left Ureteral Stent Placement, Stone Extraction - Jeremiah Wilson MD Date/Time: 03/08/25 15:08 Surgeon: Katie Pre Op Diagnosis: Ureterolithiasis, intractable pain Patient Data Age: 55 Gender: F Height: 1.47 m Weight: 61.8 kg Last Vital Signs Temp 35.8 C L 03/08/25 05:52 Pulse 72 03/08/25 05:52 Resp 14 03/08/25 05:52 BP 109/61 03/08/25 05:52 Pulse Ox 99 03/08/25 05:52 O2 Del Method Room Air 03/08/25 08:00 Allergies Allergy/AdvReac Type Severity Reaction Status Date / Time Sulfa (Sulfonamide Allergy Unknown unknown Verified 03/08/25 15:15 Antibiotics) Home Medications ?Medication ?Instructions ?Recorded ?Confirmed ?Type alprazolam 0.25 mg tablet 0.25 mg PO TID PRN anxiety 07/24/20 03/07/25 History nortriptyline 25 mg capsule 50 mg PO HS 05/11/22 03/07/25 History sertraline 100 mg tablet 100 mg PO DAILY 05/11/22 03/07/25 History topiramate 50 mg tablet 50 mg PO BID 05/11/22 03/07/25 History atorvastatin 40 mg tablet 40 mg PO DAILY 10/22/23 03/07/25 History cyanocobalamin (vitamin B-12) 100 100 mcg .every 3 days 11/08/23 History mcg/mL injection syringe famotidine 20 mg tablet 20 mg PO BID 11/08/23 03/07/25 History cetirizine 5 mg-pseudoephedrine ER 1 tablet PO BID 03/07/25 03/07/25 History 120 mg tablet,extended release,12hr (All Day Allergy-D) cholecalciferol (vitamin D3) 10 400 unit PO DAILY 03/07/25 03/07/25 History mcg (400 unit) capsule dihydroergotamine (Trudhesa) 1 spray intranasal DAILY PRN 03/07/25 03/07/25 History congestion erenumab-aooe 140 mg/mL 140 mg subcut .every 30 days 03/07/25 03/07/25 History subcutaneous auto-injector (Aimovig Autoinjector) esomeprazole magnesium 40 mg 40 mg PO DAILY 03/07/25 03/07/25 History granules delayed release for susp insulin syringe-needle U-100 1 mL 03/07/25 03/07/25 History 31 gauge x 5/16 (Sure Comfort Insulin Syringe) meclizine 12.5 mg tablet 12.5 mg PO TID PRN dizziness 03/07/25 03/07/25 History ondansetron 4 mg disintegrating 4 mg PO Q6H PRN nausea and vomiting 03/07/25 03/07/25 History tablet phenazopyridine 200 mg tablet 200 mg PO TID PRN pain 03/07/25 03/07/25 History semaglutide 0.25 mg or 0.5 mg (2 0.25 mg subcut WEEKLY 03/07/25 03/07/25 History mg/3 mL) subcutaneous pen injector tramadol 50 mg tablet 50 mg PO Q6H PRN pain 03/07/25 03/07/25 History Laboratory Tests 03/08/25 13:19 Beta HCG, Quant < 2.39 mIU/ML Patient hx anesthesia problems: none Family hx anesthesia problems: none Results Review: All pre-operative results and documents have been reviewed as part of the pre- operative evaluation. [facility] Past Medical History Medical History (Updated 03/08/25 @ 15:09 by Arley Vo DO) TIA (transient ischemic attack) Atrial fibrillation Rib fractures Depression Anxiety Vaginal delivery x 2 Surgical History Surgical History History of endometrial ablation History of cholecystectomy History of bilateral tubal ligation History of partial pancreatectomy Family History Family History Mother Hypertension Father Family history of elevated blood lipids Family history of coronary artery disease Grandparent Family history of malignant neoplasm of male breast, Onset Age: 58 Family history of coronary artery disease, Onset Age: 55 Social History Social History Smoking status: Never smoker Second hand tobacco smoke exposure: No Alcohol intake: never Substance use: never Do You Feel Safe in your Home?: Yes Lack of Transportation: No Lack of Food: Never True Current Housing: I Have Housing Concerned About Future Housing: No Difficulty Paying Gas/Electric Bills: No Difficulty Paying for Meds: No Currently Unemployed: No Education: Associate Degree Difficulty w/ Childcare or Family Care: No Living arrangements: with family Gender identity (if verbalized by the patient): Female Sexual Orientation (if Verbalized by the Patient): Straight or Heterosexual Spiritual care concerns: No Anes - Eval Final PreProcedure Day of Procedure 03/08/25 15:08 Patient weight: overweight Heart: regular rate and rhythm Lungs: clear to auscultation Airway: Mallampati scale class II Neurological: alert and oriented Last oral intake: >/= 8 hours ASA classification: III Emergent: no Anesthetic plan: proceed Anesthesia type and monitoring: general ETT and standard monitoring Results Review: All pre-operative results and documents have been reviewed as part of the pre- operative evaluation. Informed Consent: The patient's anesthetic plan and its attendant risks and benefits were discussed with the patient/family/POA. Questions were solicited and answers provided to the satisfaction of the patient/family/POA.
[2025-03-08] MEDS: FAMOTIDINE 20 MG/2 ML VIAL IV PUSH (15:38)
[2025-03-08] MEDS: ONDANSETRON INJ 4 MG/2 ML VIAL IV PUSH ×2 (15:38→21:15)
[2025-03-08] MEDS: ceFAZolin 2 GM/D5W 50 ML 2 GM/50 ML BAG IVPB (16:03)
[2025-03-08] MEDS: LIDOCAINE 2% GEL UROJET 10 ML PKG MUCOUS MEM (16:05)
--- NOTE | 2025-03-08 16:22 | W.PM.PROC2 ---
Procedure Note - Detailed Date of Procedure 03/08/25 Pre-op Diagnosis 2-3 mmleft ureteral calculus, intractable pain Post-op Diagnosis Other Procedure Performed Recent passage of stone?, urethral stenosis Surgeon Jeremiah Wilson MD Anesthesia General Description of Procedure Patient was taken to the operative suite correctly identified. Once anesthesia was obtained she was placed in dorsal lithotomy position and prepped draped usual sterile fashion. Nineteen Swedish scope would not fit through the meatus. I thus dilated the urethra up to 22 Swedish. The scope was then inserted. The bladder was inspected there were no tumors noted. Both ureteral orifices normal and docked position. Left ureteral orifice was cannulated with a guidewire in dilated with an 8/10 dilator. Rigid ureteral scope was then inserted into the distal mid and proximal ureter. There was no evidence of stones. It was noted that in the mid ureter however the ureter was slightly narrowed. I used the 8/10 dilator to dilate that area. I then placed a mini flexible ureteral scope in all the way up to the kidney. All calices were inspected. No stones were seen at this time. Pyelogram was then performed to confirm placement of the stent. 4.8 Swedish contour stent was placed with the proximal end coiled in the renal pelvis and the distal in the bladder. Bladder was drained. 2% viscous lidocaine was inserted into the urethra the patient is taken recovery room stable condition. She will follow-up in a week's time for stent removal. This completes dictation. Please send a copy of op note to my office Estimated Blood Loss 0 Urine Output 200 Drains Yes Packing No Pathology None sent Complications No immediate complications Condition Stable Disposition PACU
[2025-03-08] MEDS: oxyCODONE HCL (*CRX) 5 MG TAB IR PO (21:09)
[2025-03-08] MEDS: NORTRIPTYLINE HCL 25 MG CAPSULE 50 MG PO (21:09)
[2025-03-08] MEDS: ALPRAZolam (*CRX) 0.25 MG TABLET PO (21:10)
[2025-03-09] MEDS: ONDANSETRON INJ 4 MG/2 ML VIAL IV PUSH ×2 (04:12→08:06)
[2025-03-09] MEDS: oxyCODONE/ACETAMINOPHEN (*CRX) 5-325 MG TABLET 1 TABLET PO ×2 (04:12→08:06)
[2025-03-09] MEDS: SODIUM CHLORIDE 0.9% IV 1,000 ML 125 ML IV CONT (04:13)
[2025-03-09 05:03] VITALS: BP 117/67; PULSE 97; RESP 16; TEMP 36.3; O2SAT 98
[2025-03-09 06:21] LABS: Basophils Percent Auto 0.2 % (0.2-1.2); Hematocrit 36.7 % (37.0-47.0); Hemoglobin 11.5 g/dL (12.0-15.0); Immature Granulocyte Absolute 0.01 K/mm3 (0.00-0.031); Immature Granulocyte Percent A 0.2 % (0-0.5); Lymphocytes Absolute Auto 0.51 K/mm3 (0.9-3.2); Lymphocytes Percent Auto 10.1 % (18.3-44.2); Mean Corpuscular HGB Conc 31.3 g/dl (32-36); Mean Corpuscular Volume 92.7 fl (80-100); Mean Platelet Volume 9.4 fl (7.4-10.4); Monocytes Absolute Auto 0.1 K/mm3 (0.1-0.6); Monocytes Percent Auto 2.8 % (2.6-8.5); Neutrophils Absolute Auto 4.4 K/mm3 (1.3-6.7); Neutrophils Percent Auto 86.7 % (45.5-73.1); Platelet Count Result 278 k/mm3 (150-375); Red Blood Count 3.96 M/mm3 (4.2-5.4); Red Cell Distribution Width 13.1 % (11.5-14.5); White Blood Count 5.1 K/mm3 (4.5-10.0)
[2025-03-09 06:40] LABS: Alanine Aminotransferase 631 U/L (6-35); Albumin Level 3.4 g/dL (3.5-5.1); Alkaline Phosphatase 197 U/L (38-126); Anion Gap 7 mmol/L (4-12); Aspartate Amino Transferase 346 U/L (14-36); Bilirubin,Total 0.5 mg/dL (0.2-1.3); Blood Urea Nitrogen 9 mg/dL (7-17); Calcium 8.3 mg/dL (8.4-10.2); Carbon Dioxide 21 mmol/L (22-30); Chloride 108 mmol/L (98-107); Estimated Glomerular Filt Rate > 60; Glucose 92 mg/dL (65-110); Sodium 136 mmol/L (137-145)
[2025-03-09] MEDS: TOPIRAMATE 25 MG TABLET 50 MG PO (08:21)
[2025-03-09] MEDS: SERTRALINE HCL 50 MG TABLET 100 MG PO (08:21)
[2025-03-09] MEDS: TAMSULOSIN HCL 0.4 MG CAPSULE PO (08:21)
[2025-03-09] MEDS: FAMOTIDINE 20 MG TABLET PO (08:21)
[2025-03-09] MEDS: ATORVASTATIN 40 MG TABLET PO (08:21)
--- NOTE | 2025-03-09 09:23 | P.PNUR_ITS ---
Progress Note: A&P Assessment and Plan (1) Ureterolithiasis: Code(s): N20.1 - Calculus of ureter Status: Acute (2) Hydronephrosis: Code(s): N13.30 - Unspecified hydronephrosis Status: Acute (3) Acute pain: Code(s): R52 - Pain, unspecified Status: Acute Plan - 2-3 mm left proximal ureteral stone with mild left hydronephrosis - Other punctate nonobstructing bilateral nephrolithiasis - Remote history of pansensitive E. coli UTI (11/08/2023) - UA does not appear grossly infected, afebrile, no leukocytosis Plan: - Ureteroscopy with stent completed 03/08/2025. No stones visualized. - Patient is ok to discharge from urology standpoint. -She is to follow up in one week in the office to have the stent removed. Subjective Subjective Date/Time Seen: 03/09/25 09:23 Interval history: Pt is a 55 y/o female with a PMHx of HLD, depression, anxiety, hydronephritis, kidney stones, and ureterolithiasis who reports to the ED on 03/07 c/o severe L flank pain that started earlier that AM. Pt reports that the pain starts in her L flank and wraps around to her LLQ. Reports nausea and diaphoresis. denies V/D or fever. Hx of kidney stone last in 2018. New in the ED the patient's lab work shows no leukocytosis, UA negative trace ketones and 3+ blood, with 11-20 rbc's, noninfective. CT abdomen pelvis show Bilateral nephrolithiasis with 2-3 mm stone at the proximal left ureter with mild left hydronephrosis, Small loop of nonobstructed small bowel extends into a small widemouthed umbilical hernia, and small pericardial effusion. was consulted. team planning for potential cysto today with stent placement if pain not managed. . 03/09/2025 Left ureteral stent placed yesterday during ureteroscopy. patient c/o dull Left cva discomfort. no acute distress. Review of Systems Constitutional: Constitutional: Denies chills Cardiovascular: Cardiovascular: Denies chest pain and Denies dyspnea Respiratory: Respiratory: Denies dyspnea Genitourinary: Genitourinary: Denies hematuria Exam Const: General: comfortable and no acute distress Resp: Effort & Inspection: normal respiratory effort GI: Other: MILD LLQ TENDERNESS : Other: MILD LEFT CVA TENDERNESS Skin: General skin exam: normal color Neuro: Speech: normal speech Psych: Speech and movement: Normal speech and movement present Objective Data Vital Signs Vital Signs: Vital Signs - 24 hr 03/08/25 15:00 03/08/25 15:09 03/08/25 16:26 Temperature 97.5 F L 96.5 F L 97.5 F L Pulse Rate 93 90 92 Respiratory Rate 14 13 15 Blood Pressure 119/71 117/65 95/55 L Pulse Oximetry 97 95 95 Oxygen Delivery Room Air Simple Face Mask Oxygen Flow Rate 8 03/08/25 16:30 03/08/25 16:45 03/08/25 17:00 Temperature Pulse Rate 98 95 84 Respiratory Rate 16 16 13 Blood Pressure 114/70 114/71 119/70 Pulse Oximetry 96 97 97 Oxygen Delivery Room Air Room Air Room Air Oxygen Flow Rate 03/08/25 17:15 03/08/25 20:15 03/09/25 05:03 Temperature 97.7 F 97.3 F L Pulse Rate 100 107 H 97 Respiratory Rate 13 17 16 Blood Pressure 117/76 109/57 L 117/67 Pulse Oximetry 94 98 98 Oxygen Delivery Room Air Oxygen Flow Rate Intake/Output Intake/Output: Intake & Output 03/06/25 03/07/25 03/08/25 03/09/25 23:59 23:59 23:59 23:59 Intake Total 1829.2 2490 1621.3 Output Total 200 200 Balance 1629.2 2290 1621.3 Meds/Results Medications: Active Medications Generic Name Dose Route Start Last Admin Trade Name Freq PRN Reason Stop Dose Admin Acetaminophen 650 mg 03/07/25 12:30 03/09/25 05:55 Acetaminophen 325 Mg Tablet PO Not Given Q6HR OFE Alprazolam 0.25 mg 03/07/25 19:01 03/08/25 21:10 Alprazolam (*Crx) 0.25 Mg Tablet PO 0.25 mg TID PRN Administration anxiety Atorvastatin Calcium 40 mg 03/08/25 09:00 03/09/25 08:21 Atorvastatin 40 Mg Tablet PO 40 mg DAILY OFE Administration Famotidine 20 mg 03/08/25 09:00 03/09/25 08:21 Famotidine 20 Mg Tablet PO 20 mg Q12HR OFE Administration Fentanyl Citrate 25 mcg 03/08/25 15:09 Fentanyl Citrate Inj (*Crx) 100 Mcg/2 Ml Vial IV PUSH Q2M PRN Pain Sodium Chloride 1,000 mls @ 125 mls/hr 03/07/25 12:30 03/09/25 04:13 Normal Saline Iv IV CONT 125 mls/hr .Q8H OFE Administration Morphine Sulfate 30 mg in 30 mls @ 0 mls/hr 03/07/25 20:52 03/07/25 22:23 Morphine Sulfate Patient Registration Representative IV CONT 0.5 mg/hr PRN PRN 0.5 mls/hr INSTRUCTOR CREELER Management Administration Protocol 0 MG/HR Lactated Ringer's 1,000 mls @ 30 mls/hr 03/08/25 15:10 03/08/25 15:00 Lr - Lactated Ringers Iv IV CONT 30 mls/hr .Q24H OFE Administration Lactated Ringer's 1,000 mls @ 30 mls/hr 03/08/25 15:10 03/08/25 21:01 Lr - Lactated Ringers Iv IV CONT Not Given .Q24H OFE Meclizine HCl 12.5 mg 03/07/25 20:51 Meclizine Hcl 12.5 Mg Tablet PO TID PRN dizziness Nortriptyline HCl 50 mg 03/07/25 21:00 03/08/25 21:09 Nortriptyline Hcl 25 Mg Capsule PO 50 mg HS OFE Administration Ondansetron HCl 4 mg 03/08/25 15:09 03/09/25 04:12 Ondansetron Inj 4 Mg/2 Ml Vial IV PUSH 4 mg ONCE PRN Administration Nausea Ondansetron HCl 4 mg 03/09/25 03:58 03/09/25 08:06 Ondansetron Inj 4 Mg/2 Ml Vial IV PUSH 4 mg Q4H PRN Administration Nausea And Vomiting Oxybutynin Chloride 5 mg 03/08/25 17:19 Oxybutynin Chloride 5 Mg Tablet PO TID PRN Spasms Oxycodone HCl 5 mg 03/08/25 15:09 03/08/25 21:09 Oxycodone Hcl (*Crx) 5 Mg Tab Ir PO 5 mg ONCE PRN Administration Pain Oxycodone/Acetaminophen 1 tablet 03/09/25 03:58 03/09/25 08:06 Oxycodone/Acetaminophen (*Crx) 5-325 Mg Tablet PO 1 tablet Q4H PRN Administration Pain Rated 7-10 Perflutren Lipid Microsphere 0 ml 03/07/25 21:46 Perflutren Lipid Microspheres 1.5 Ml Vial Diluted To 10 Ml Total Volume IV PUSH 03/10/25 21:46 ONCE PRN adequate visualization Protocol Phenazopyridine HCl 200 mg 03/07/25 19:01 03/07/25 20:42 Phenazopyridine Hcl 100 Mg Tablet PO 200 mg TID PRN Administration pain Sertraline HCl 100 mg 03/08/25 09:00 03/09/25 08:21 Sertraline Hcl 50 Mg Tablet PO 100 mg DAILY OFE Administration Tamsulosin HCl 0.4 mg 03/08/25 09:00 03/09/25 08:21 Tamsulosin Hcl 0.4 Mg Capsule PO 03/22/25 08:59 0.4 mg QAM OFE Administration Topiramate 50 mg 03/08/25 09:00 03/09/25 08:21 Topiramate 25 Mg Tablet PO 50 mg BID OFE Administration Radiology Results: ITS Impressions Abdomen/Pelvis CT 03/07/25 09:54 IMPRESSION: 1. Bilateral nephrolithiasis with 2-3 mm stone at the proximal left ureter with mild left hydronephrosis. 2. Small loop of nonobstructed small bowel extends into a small widemouthed umbilical hernia. Additional small fat-containing supraumbilical ventral hernia. 3. Very small pericardial effusion. Abdomen X-Ray 03/07/25 10:58 IMPRESSION: NO ACUTE ABDOMINAL FINDINGS. Labs Labs: Laboratory Results - last 24 hr 03/08/25 03/09/25 13:19 05:55 WBC 5.1 RBC 3.96 L Hgb 11.5 L Hct 36.7 L MCV 92.7 MCH 29.0 MCHC 31.3 L RDW 13.1 Plt Count 278 MPV 9.4 Immature Gran % (Auto) 0.2 Neut % (Auto) 86.7 H Lymph % (Auto) 10.1 L [place] % (Auto) 2.8 Eos % (Auto) 0.0 Baso % (Auto) 0.2 Lymph # (Auto) 0.51 L [place] # (Auto) 0.1 Eos # (Auto) 0.0 Baso # (Auto) 0.0 Abs Immat Gran (auto) 0.01 Absolute Neuts (auto) 4.4 Absolute Nucleated RBC 0.000 Nucleated RBC % 0.0 Sodium 136 L Potassium 4.0 Chloride 108 H Carbon Dioxide 21 L Anion Gap 7 BUN 9 D Creatinine 0.64 L Estim Creat Clear Calc Not Reportable Estimated GFR > 60 Glucose 92 Calcium 8.3 L Total Bilirubin 0.5 AST 346 H ALT 631 H Alkaline Phosphatase 197 H Total Protein 6.0 L Albumin 3.4 L Beta HCG, Quant < 2.39
--- NOTE | 2025-03-09 11:59 | P.DS_ITS ---
DS: Admitting Diagnosis Discharge Date 03/09/2025 Admitting Diagnosis Left flank pain DS: Discharge Diagnosis Discharge Diagnosis (1) Kidney stone: Code(s): N20.0 - Calculus of kidney Status: Acute (2) Acute pain: Code(s): R52 - Pain, unspecified Status: Acute (3) Hydronephrosis: Code(s): N13.30 - Unspecified hydronephrosis Status: Acute (4) Pericardial effusion: Code(s): I31.39 - Other pericardial effusion (noninflammatory) Status: Acute (5) Anxiety: Code(s): F41.9 - Anxiety disorder, unspecified Status: Acute (6) Hyperlipidemia: Code(s): E78.5 - Hyperlipidemia, unspecified Status: Acute DS: Summary Hospital Course Hospital Course: ED work up the patient's lab work shows no leukocytosis, UA negative trace ketones and 3+ blood, with 11-20 rbc's, noninfective. CT abdomen pelvis show Bilateral nephrolithiasis with 2-3 mm stone at the proximal left ureter with mild left hydronephrosis, Small loop of nonobstructed small bowel extends into a small widemouthed umbilical hernia, and small pericardial effusion. was consulted. Ureteroscopy with stent completed 03/08/25. Echocardiogram on 03/08/25 showed: Summary 1. Left ventricular chamber dimension is normal. 2. Left ventricular systolic function is normal, estimated at 60-65. 3. Right ventricular systolic function is normal. 4. There is trivial pericardial effusion. 5. No significant valvular disease. Patient will follow up with urology for stent removal outpatient. Status at Discharge Functional status at discharge: independent ambulation Overall status at discharge: patient is progressing back to baseline Time Spent with Patient Time attestation: Total time spent providing and/or coordinating discharge services: Time spent: Greater than 30 minutes Exam Const: General: no acute distress and uncomfortable Resp: Effort & Inspection: normal respiratory effort Auscultation: clear to auscultation bilaterally Cardio: Rate: regular rate Rhythm: regular rhythm GI: GI Palp: Yes Soft to palpation Auscultation: normal bowel sounds Extrem: General: no pedal edema Psych: Mental Status: mental status grossly normal Affect: normal affect DS: Data Data Completed and Pending Labs on day of discharge: Labs from last 24 hours 03/09/25 03/08/25 05:55 13:19 WBC 5.1 RBC 3.96 L Hgb 11.5 L Hct 36.7 L MCV 92.7 MCH 29.0 MCHC 31.3 L RDW 13.1 Plt Count 278 MPV 9.4 Immature Gran % (Auto) 0.2 Neut % (Auto) 86.7 H Lymph % (Auto) 10.1 L [place] % (Auto) 2.8 Eos % (Auto) 0.0 Baso % (Auto) 0.2 Lymph # (Auto) 0.51 L [place] # (Auto) 0.1 Eos # (Auto) 0.0 Baso # (Auto) 0.0 Abs Immat Gran (auto) 0.01 Absolute Neuts (auto) 4.4 Absolute Nucleated RBC 0.000 Nucleated RBC % 0.0 Sodium 136 L Potassium 4.0 Chloride 108 H Carbon Dioxide 21 L Anion Gap 7 BUN 9 D Creatinine 0.64 L Estim Creat Clear Calc Not Reportable Estimated GFR > 60 Glucose 92 Calcium 8.3 L Total Bilirubin 0.5 AST 346 H ALT 631 H Alkaline Phosphatase 197 H Total Protein 6.0 L Albumin 3.4 L Beta HCG, Quant < 2.39 Discharge Plan Discharge Attending physician on discharge: Ras Lynn Consulting providers: Jeremiah Wilson Discharging Clinician: Jessika Santiago Anticipated Discharge Date/Time: 03/09/25 12:30 Patient Disposition: Home Activity: may shower and as tolerated Diet: regular Discharge Instructions: * Strain all urine. * Increase oral intake, drink water. * Call for appointment in 1 week for stent removal. * Call provider if you develop fever >101, uncontrolled nausea/vomiting, or worsening pain. * Have B12 level checked with primary. Thank you for entrusting [facility] with your healthcare! Patient Instructions: Antibiotic Form, Kidney Stones (DC), Ureteral Stent Placement (DC) Patient Language: Jordanian Stand Alone Forms: General Discharge Information Follow-up/Referrals: aDmaris Fox [Other] Jeremiah Wilson MD [Physician] - 1 Week Discharge Medications: New tamsulosin 0.4 mg Capsule 0.4 mg PO QAM Qty: 30 0RF Continued atorvastatin 40 mg tablet 40 mg PO DAILY famotidine 20 mg tablet 20 mg PO BID topiramate 50 mg tablet 50 mg PO BID nortriptyline 25 mg capsule 50 mg PO HS sertraline 100 mg tablet 100 mg PO DAILY alprazolam 0.25 mg tablet 0.25 mg PO TID PRN (Reason: anxiety) (DME) insulin syringe-needle U-100 [Sure Comfort Insulin Syringe] 1 mL 31 gauge x 5/16 syringe MISCELLANEOUS Aimovig Autoinjector 140 mg/mL auto-injector 140 mg SUBCUT .every 30 days meclizine 12.5 mg tablet 12.5 mg PO TID PRN (Reason: dizziness) phenazopyridine 200 mg tablet 200 mg PO TID PRN (Reason: pain) cetirizine-pseudoephedrine [All Day Allergy-D] 5-120 mg tablet extended release 12 hr 1 tablet PO BID semaglutide 0.25 mg or 0.5 mg (2 mg/3 mL) pen injector 0.25 mg subcut WEEKLY Rx Instructions: for 4 weeks tramadol 50 mg tablet 50 mg PO Q6H PRN (Reason: pain) Trudhesa 0.725 mg/pump act. (4 mg/mL) spray,non-aerosol 1 spray intranasal DAILY PRN (Reason: congestion) Rx Instructions: may repeat in 1 hour (as a single dose). Do not exceed 2 sprays into each nostril per 24 hrs OR 6 sprays total in 7 days ondansetron 4 mg tablet,disintegrating 4 mg PO Q6H PRN (Reason: nausea and vomiting) esomeprazole magnesium [address] for susp in packet 40 mg PO DAILY cholecalciferol (vitamin D3) 10 mcg (400 unit) capsule 400 unit PO DAILY Held cyanocobalamin (vitamin B-12) 100 mcg/mL Syringe 100 mcg .every 3 days Hold Instructions: Resume on 03/25/25. HOLD until level checked. Date of admission: 03/07/25 12:58 Primary Care Provider: UNKNOWN,DOCTOR Admitting Provider: Marco Parada Attending physician on admission: Di Streeter Condition: Improved Hospitalist MIPS Heart Failure (Exclusion) Patient has history of Heart Transplant or Left Ventricular Assistive Device?: No IF YES, STOP HERE Heart Failure (Qualifier) Patient has current or prior documentation of LVEF less than or equal to 40%, or mod/servere depressed LVSF?: No IF NO, STOP HERE
== END 2025-03-09 12:40 | disposition home or self-care (01) ==
LOC: ANHED 09:53 → ANH3MEDSUR 13:42
PROVIDERS: Anesthesiology; Student in an Organized Health Care Education/Training Program; Urology; Admitting Provider Internal Medicine; Emergency Provider Physician Assistant; Visit Provider Nurse Practitioner Family
PROC: (CPT 52352; principal; 2025-03-08 15:30)
DX: N13.2 Hydronephrosis with renal and ureteral calculous obstruction (principal); N35.92 Unspecified urethral stricture, female; R52 Pain, unspecified; I31.39 Other pericardial effusion (noninflammatory); E78.5 Hyperlipidemia, unspecified; F32.A Depression, unspecified; F41.9 Anxiety disorder, unspecified; Z79.4 Long term (current) use of insulin; Z79.899 Other long term (current) drug therapy; Z88.2 Allergy status to sulfonamides; Z86.73 Personal history of transient ischemic attack (TIA), and cerebral infarction without residual deficits; Z87.442 Personal history of urinary calculi; Z90.411 Acquired partial absence of pancreas; Z90.49 Acquired absence of other specified parts of digestive tract
CPT/HCPCS: 52351; 52332; 36415; 74018; 74176; 74420; 80053; 81001; 83690; 84702; 85025; 93306; 96361; 96374; 96375; 96376; 99285; A9270; C1769; C2617; G0378; J0690; J1100; J1171; J1885; J2250; J2270; J2371; J2405; J2704; J3010; J7030; J7120; Q9966